=== PATIENT | female | born 2000 | race Caucasian/White ===

== ENCOUNTER 2021-06-02 22:43 | Emergency (ER) | payer OTHER ==
[2021-06-02] MEDS ORDERED: Sodium Chloride 0.9% 1000 ML 1,000 ML IV STA (23:14)
[2021-06-02 23:55] LABS: Absolute Neutrophil Ct (ANC) 4.01 (1.4-6.9); BASOPHIL % 0.2 % (0.0-0.4); Basophil (Absolute #) 0.02 (0-0.4); Eosinophil (Absolute #) 0.25 (0-0.5); Hematocrit 35.5 % (35-47); Hemoglobin 11.2 gm/dl (12.0-16.0); Lymphocytes % 36.5 % (24.0-44.0); Mean Cell Volume 73.5 fl (78-100); Mean Corpuscular Hemoglobin 23.2 pg (26-32); Mean Corpuscular Hgb Concent. 31.5 g/dl (32-36); Mean Platelet Volume 8.8 fl (7.5-11.0); Monocyte (Absolute #) 0.94 (0.0-1.3); Monocytes % 11.4 % (0.0-12.0); Neutrophil % 48.9 % (36.0-66.0); Platelet Count 511 K/mm3 (150-450); Red Blood Count 4.83 M/mm3 (4.1-5.4); Red Cell Distribution Width 15.7 % (11.5-14.0); White Blood Count 8.2 K/mm3 (4.0-10.5)
[2021-06-03 00:04] LABS: INR 1.11 (0.8-3.0); PROTIME 13.1 SECONDS (9.4-12.5)
[2021-06-03 00:15] LABS: ALKALINE PHOSPHATASE 84 U/L (38-126); AMYLASE 68 U/L (30-110); ANION GAP 15.8 MEQ/L (5-15); BLOOD UREA NITROGEN 9 mg/dL (7-17); CHLORIDE 105 mmol/L (98-107); Calcium 9.2 mg/dL (8.4-10.2); Carbon Dioxide 21 mmol/L (22-30); Creatinine 1 0.73 mg/dL (0.52-1.04); EST GLOMERULAR FILTRATION RATE > 60.0 ML/MIN; Glucose 95 mg/dL (74-106); LIPASE 168 U/L (23-300); Potassium 3.5 mmol/L (3.5-5.1); SGOT/AST 16 U/L (14-36); SGPT/ALT 10 U/L (0-35); SODIUM 139 mmol/L (137-145); Total Protein 7.7 g/dL (6.3-8.2)
[2021-06-03] MEDS ORDERED: solu-MEDROL 125 MG, Sterile H2O 10 ml 2 ML IV ONE ×2 (01:06)
[2021-06-03] MEDS ORDERED: FLAGYL 500 MG IVPB 500 MG/100 ML BAG IV STA (01:07)
[2021-06-03 01:21] LABS: Appearance CLEAR (CLEAR); Bilirubin NEGATIVE (NEGATIVE); Blood MODERATE Ery/ul (0-5); Glucose NEGATIVE (NEGATIVE); Ketones NEGATIVE (NEGATIVE); Leukocyte Esterase NEGATIVE (NEGATIVE); Nitrite NEGATIVE (NEGATIVE); Protein,Urine Dip NEGATIVE (Negative); Specific Gravity 1.004 (1.005-1.025); Urobilinogen NEGATIVE mg/dL (0-1); WBC 0-2 /HPF (0-5)
[2021-06-03 01:24] LABS: Bacteria NONE SEEN /HPF (NEGATIVE)
[2021-06-03] MEDS ORDERED: Flagyl 500 MG PO ONE (01:26)
[2021-06-03] MEDS ORDERED: solu-MEDROL 125 MG, Sterile H2O 10 ml 2 ML IM ONE ×2 (01:27)
[2021-06-03] MEDS ORDERED: solu-MEDROL ONE (01:31)
[2021-06-03] MEDS ORDERED: Sterile H2O 10 ml IJ ONE (01:31)
[2021-06-03] MEDS ORDERED: Flagyl 500 MG ONE (01:32)
[2021-06-03 01:59] LABS: 027 TOX PROD PRESUMPTIVE NEGATIVE (NEGATIVE); TOXIGENIC C. DIFF ORG NEGATIVE (NEGATIVE)
[2021-06-03 03:52] VITALS: O2SAT 96
[2021-06-03 03:59] VITALS: BP 101/64; PULSE 90
--- NOTE | 2021-06-03 03:59 | ERPHSYRPT ---
- History of Present Illness Time Seen by Provider: 06/02/21 23:10 Historian: patient Exam Limitations: no limitations Patient Subjective Stated Complaint: Patient states she began noticing an increase in the blood in her stool today. She states she always has a little bit of blood in her stool related to her Crohn's Disease but it has increased signifcantly today and she has noted some clots in her stool as well. States she has had 4 bowel movements today and all have been "loose like water." Triage Nursing Assessment: Patient ambulated back to ED. She is alert and oriented and able to answer questions appropriately. Patient unable to give a stool sample at this time but did have some pictures on her phone of some bowel movements that she had today that showed stool with bright red bleeding and clots in them. She denies any abdominal pain. She has active bowel sounds. Denies N/V. Inspected buttocks/rectum with no external hemrrhoids noted. Physician History: Patient is a 30-year-old white female who knows a history of Crohn's disease she has been having increasing diarrhea and small amounts of blood but then today had 4 stools 1 of which contained a significant increase in the amount of blood. She has recently been on antibiotics for a sinus infection and ear infection. She is maintained on Humira she is followed by Dr. Grady in [place] at [facility] Timing/Duration: week(s) (1) Activities at Onset: none Quality: cramping Abdominal Pain Onset Location: generalized abdomen Pain Radiation: no radiation Severity of Pain-Max: mild Severity of Pain-Current: mild Modifying Factors: Improves With: nothing, defecating. Worsens With: vomiting Associated Symptoms: denies symptoms Previous symptoms: same symptoms as today Allergies/Adverse Reactions: No Known Drug Allergies Allergy (Verified 06/02/21 22:56) Home Medications: Adalimumab [Humira] 40 mg SQ CLARIFY 06/02/21 [History] Loratadine 10 mg [Claritin 10 mg] 10 mg PO DAILY 06/02/21 [History] Hx Tetanus, Diphtheria Vaccination/Date Given: Yes Hx Influenza Vaccination/Date Given: Yes Hx Pneumococcal Vaccination/Date Given: No Immunizations Up to Date: Yes Travel Risk - International Travel Have you traveled outside of the country in past 3 weeks: No - Coronavirus Screening Are you exhibiting any of the following symptoms?: Yes Symptoms: Vomiting/Diarrhea Close contact with a COVID-19 positive Pt in past 14-21 Days: No - Vaccine Status Have you recieved a Covid-19 vaccination: Yes 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[employer] - Vaccination Dates Date of 2cond Vaccination (if applicable): 11/04/20 Comment: Received Booster vaccine on 05/29/21 - Review of Systems Constitutional: No Fever, No Chills Eyes: No Symptoms Ears, Nose, & Throat: No Symptoms Respiratory: No Cough, No Dyspnea Cardiac: No Chest Pain, No Edema, No Syncope Abdominal/Gastrointestinal: Abdominal Pain, Diarrhea, Hematochezia, No Nausea, No Vomiting Genitourinary Symptoms: No Dysuria Musculoskeletal: No Back Pain, No Neck Pain Skin: No Rash Neurological: No Dizziness, No Focal Weakness, No Sensory Changes Psychological: No Symptoms Endocrine: No Symptoms All Other Systems: Reviewed and Negative - Past Medical History Pertinent Past Medical History: Yes GI Medical History: Crohns Disease - Past Surgical History Past Surgical History: Yes Other Surgical History: COLONOSCOPY - ADENOIDECTMY - Social History Smoking Status: Never smoker Exposure to second hand smoke: No Drug Use: none Patient Lives Alone: No - Female History Hx Now: No - Nursing Vital Signs Nursing Vital Signs: Initial Vital Signs Temperature 97.7 F 06/02/21 22:59 Pulse Rate 103 H 06/02/21 22:59 Respiratory Rate 17 06/02/21 22:59 Blood Pressure 124/82 06/02/21 22:59 O2 Sat by Pulse Oximetry 96 06/02/21 22:59 Pain Scale Pain Intensity 0 - Physical Exam General Appearance: mild distress, alert Eye Exam: PERRL/EOMI, eyes nml inspection Ears, Nose, Throat Exam: normal ENT inspection, pharynx normal, moist mucous membranes Neck Exam: normal inspection, non-tender, supple, full range of motion Respiratory Exam: normal breath sounds, lungs clear, No respiratory distress Cardiovascular Exam: regular rate/rhythm, normal heart sounds Gastrointestinal/Abdomen Exam: soft, No tenderness, No mass Rectal Exam: normal exam Back Exam: normal inspection, normal range of motion, No CVA tenderness, No vertebral tenderness Extremity Exam: normal inspection, normal range of motion, pelvis stable Neurologic Exam: alert, oriented x 3, cooperative, normal mood/affect, nml cerebellar function, sensation nml, No motor deficits Skin Exam: normal color, warm, dry SpO2: 96 - Course Nursing assessment & vital signs reviewed: Yes - CT Exams Abdomen/Pelvis CT Interpretation: Tele-radiologist Report Ordered Tests: Active Orders 24 hr Category Date Time Status IV Insertion STAT Care 06/02/21 23:14 Active ABDOMEN AND PELVIS W/0 CONTRAS [CT] Stat Exams 06/03/21 00:47 Taken AMYLASE Stat Lab 06/02/21 23:52 Completed CBC W DIFF Stat Lab 06/02/21 23:52 Completed CMP Stat Lab 06/02/21 23:52 Completed LIPASE Stat Lab 06/02/21 23:52 Completed Lactic Acid Stat Lab 06/02/21 23:52 Completed PROTIME WITH INR Stat Lab 06/02/21 23:52 Completed UA W/RFX UR CULTURE Stat Lab 06/03/21 00:51 Completed Medication Summary Discontinued Medications Generic Name Dose Route Start Last Admin Trade Name Freq PRN Reason Stop Dose Admin Methylprednisolone Sodium 0 mg 06/03/21 01:06 Succinate 125 mg/ Sterile IV 06/03/21 01:07 Water 2 ml STAT ONE Methylprednisolone Sodium 0 mg 06/03/21 01:27 06/03/21 01:32 Succinate 125 mg/ Sterile IM 06/03/21 01:28 125 mg Water 2 ml STAT ONE Administration Sodium Chloride 1,000 mls @ 999 mls/hr 06/02/21 23:14 Sodium Chloride 0.9% 1000 Ml IV 06/03/21 00:14 .Q1H1M STA Metronidazole 500 mg in 100 mls @ 200 mls/hr 06/03/21 01:07 Flagyl 500 Mg Ivpb IV 06/03/21 01:36 STAT STA Methylprednisolone Sodium Succinate Confirm 06/03/21 01:31 Methylprednis Sod Succ 125 Mg/2 Ml Vial Administered 06/03/21 01:32 Dose 125 mg .ROUTE .STK-MED ONE Metronidazole 500 mg 06/03/21 01:26 06/03/21 01:32 Metronidazole 500 Mg Tablet PO 06/03/21 01:27 500 mg STAT ONE Administration Metronidazole Confirm 06/03/21 01:32 Metronidazole 500 Mg Tablet Administered 06/03/21 01:33 Dose 500 mg .ROUTE .STK-MED ONE Sterile Water Confirm 06/03/21 01:31 Water For Injection,Sterile 10 Ml Vial Administered 06/03/21 01:32 Dose 10 ml IJ .STK-MED ONE Lab/Rad Data: Laboratory Result Diagrams 06/02/21 23:52 06/02/21 23:52 Laboratory Results 06/03/21 06/03/21 06/02/21 Range/Units 01:09 00:51 23:52 WBC (4.0-10.5) K/mm3 RBC (4.1-5.4) M/mm3 Hgb (12.0-16.0) gm/dl Hct (35-47) % MCV (78-100) fl MCH (26-32) pg MCHC (32-36) g/dl RDW (11.5-14.0) % Plt Count (150-450) K/mm3 MPV (7.5-11.0) fl Gran % (36.0-66.0) % Eos # (Auto) (0-0.5) Absolute Lymphs (auto) (1.0-4.6) Absolute Monos (auto) (0.0-1.3) Lymphocytes % (24.0-44.0) % Monocytes % (0.0-12.0) % Eosinophils % (0.00-5.0) % Basophils % (0.0-0.4) % Absolute Granulocytes (1.4-6.9) Basophils # (0-0.4) PT 13.1 H (9.4-12.5) SECONDS INR 1.11 (0.8-3.0) Sodium (137-145) mmol/L Potassium (3.5-5.1) mmol/L Chloride (98-107) mmol/L Carbon Dioxide (22-30) mmol/L Anion Gap (5-15) MEQ/L BUN (7-17) mg/dL Creatinine (0.52-1.04) mg/dL Estimated GFR ML/MIN Glucose (74-106) mg/dL Lactic Acid (0.4-2.0) Calcium (8.4-10.2) mg/dL Total Bilirubin (0.2-1.3) mg/dL AST (14-36) U/L ALT (0-35) U/L Alkaline Phosphatase (38-126) U/L Serum Total Protein (6.3-8.2) g/dL Albumin (3.5-5.0) g/dL Amylase (30-110) U/L Lipase (23-300) U/L Urine Color STRAW (YELLOW) Urine Appearance CLEAR (CLEAR) Urine pH 6.0 (5-6) Ur Specific [place] 1.004 (1.005-1.025) Urine Protein NEGATIVE (Negative) Urine Ketones NEGATIVE (NEGATIVE) Urine Blood MODERATE (0-5) Sancho/ul Urine Nitrite NEGATIVE (NEGATIVE) Urine Bilirubin NEGATIVE (NEGATIVE) Urine Urobilinogen NEGATIVE (0-1) mg/dL Ur Leukocyte Esterase NEGATIVE (NEGATIVE) Urine WBC (Auto) 0-2 (0-5) /HPF Urine RBC (Auto) 3-5 (0-2) /HPF U Epithel Cells (Auto) NONE (FEW) /HPF Urine Bacteria (Auto) NONE SEEN (NEGATIVE) /HPF Urine Culture Reflexed NO (NO) Urine Glucose NEGATIVE (NEGATIVE) mg/dL Urine HCG, Qual (Negative) Stool Occult Blood (NEGATIVE) C. difficile Screen NEGATIVE (NEGATIVE) C.difficile [id number] PRESUMPTIVE NEGATIVE (NEGATIVE) 06/02/21 06/02/21 06/02/21 Range/Units 23:52 23:52 23:52 WBC 8.2 (4.0-10.5) K/mm3 RBC 4.83 (4.1-5.4) M/mm3 Hgb 11.2 L (12.0-16.0) gm/dl Hct 35.5 (35-47) % MCV 73.5 L (78-100) fl MCH 23.2 L (26-32) pg MCHC 31.5 L (32-36) g/dl RDW 15.7 H (11.5-14.0) % Plt Count 511 H (150-450) K/mm3 MPV 8.8 (7.5-11.0) fl Gran % 48.9 (36.0-66.0) % Eos # (Auto) 0.25 (0-0.5) Absolute Lymphs (auto) 3.00 (1.0-4.6) Absolute Monos (auto) 0.94 (0.0-1.3) Lymphocytes % 36.5 (24.0-44.0) % Monocytes % 11.4 (0.0-12.0) % Eosinophils % 3.0 (0.00-5.0) % Basophils % 0.2 (0.0-0.4) % Absolute Granulocytes 4.01 (1.4-6.9) Basophils # 0.02 (0-0.4) PT (9.4-12.5) SECONDS INR (0.8-3.0) Sodium 139 (137-145) mmol/L Potassium 3.5 (3.5-5.1) mmol/L Chloride 105 (98-107) mmol/L Carbon Dioxide 21 L (22-30) mmol/L Anion Gap 15.8 H (5-15) MEQ/L BUN 9 (7-17) mg/dL Creatinine 0.73 (0.52-1.04) mg/dL Estimated GFR > 60.0 ML/MIN Glucose 95 (74-106) mg/dL Lactic Acid 0.8 (0.4-2.0) Calcium 9.2 (8.4-10.2) mg/dL Total Bilirubin 0.30 (0.2-1.3) mg/dL AST 16 (14-36) U/L ALT 10 (0-35) U/L Alkaline Phosphatase 84 (38-126) U/L Serum Total Protein 7.7 (6.3-8.2) g/dL Albumin 4.0 (3.5-5.0) g/dL Amylase 68 (30-110) U/L Lipase 168 (23-300) U/L Urine Color (YELLOW) Urine Appearance (CLEAR) Urine pH (5-6) Ur Specific [place] (1.005-1.025) Urine Protein (Negative) Urine Ketones (NEGATIVE) Urine Blood (0-5) Sancho/ul Urine Nitrite (NEGATIVE) Urine Bilirubin (NEGATIVE) Urine Urobilinogen (0-1) mg/dL Ur Leukocyte Esterase (NEGATIVE) Urine WBC (Auto) (0-5) /HPF Urine RBC (Auto) (0-2) /HPF U Epithel Cells (Auto) (FEW) /HPF Urine Bacteria (Auto) (NEGATIVE) /HPF Urine Culture Reflexed (NO) Urine Glucose (NEGATIVE) mg/dL Urine HCG, Qual (Negative) Stool Occult Blood (NEGATIVE) C. difficile Screen (NEGATIVE) C.difficile 027-NAP1-B1 (NEGATIVE) 06/02/21 06/02/21 Range/Units 01:08 01:08 WBC (4.0-10.5) K/mm3 RBC (4.1-5.4) M/mm3 Hgb (12.0-16.0) gm/dl Hct (35-47) % MCV (78-100) fl MCH (26-32) pg MCHC (32-36) g/dl RDW (11.5-14.0) % Plt Count (150-450) K/mm3 MPV (7.5-11.0) fl Gran % (36.0-66.0) % Eos # (Auto) (0-0.5) Absolute Lymphs (auto) (1.0-4.6) Absolute Monos (auto) (0.0-1.3) Lymphocytes % (24.0-44.0) % Monocytes % (0.0-12.0) % Eosinophils % (0.00-5.0) % Basophils % (0.0-0.4) % Absolute Granulocytes (1.4-6.9) Basophils # (0-0.4) PT (9.4-12.5) SECONDS INR (0.8-3.0) Sodium (137-145) mmol/L Potassium (3.5-5.1) mmol/L Chloride (98-107) mmol/L Carbon Dioxide (22-30) mmol/L Anion Gap (5-15) MEQ/L BUN (7-17) mg/dL Creatinine (0.52-1.04) mg/dL Estimated GFR ML/MIN Glucose (74-106) mg/dL Lactic Acid (0.4-2.0) Calcium (8.4-10.2) mg/dL Total Bilirubin (0.2-1.3) mg/dL AST (14-36) U/L ALT (0-35) U/L Alkaline Phosphatase (38-126) U/L Serum Total Protein (6.3-8.2) g/dL Albumin (3.5-5.0) g/dL Amylase (30-110) U/L Lipase (23-300) U/L Urine Color (YELLOW) Urine Appearance (CLEAR) Urine pH (5-6) Ur Specific [place] (1.005-1.025) Urine Protein (Negative) Urine Ketones (NEGATIVE) Urine Blood (0-5) Sancho/ul Urine Nitrite (NEGATIVE) Urine Bilirubin (NEGATIVE) Urine Urobilinogen (0-1) mg/dL Ur Leukocyte Esterase (NEGATIVE) Urine WBC (Auto) (0-5) /HPF Urine RBC (Auto) (0-2) /HPF U Epithel Cells (Auto) (FEW) /HPF Urine Bacteria (Auto) (NEGATIVE) /HPF Urine Culture Reflexed (NO) Urine Glucose (NEGATIVE) mg/dL Urine HCG, Qual NEGATIVE (Negative) Stool Occult Blood POSITIVE A (NEGATIVE) C. difficile Screen (NEGATIVE) C.difficile 027-NAP1-B1 (NEGATIVE) - Progress Progress: improved - Departure Departure Disposition: Home Clinical Impression: Exacerbation of Crohn's disease Condition: Stable Critical Care Time: No Referrals: KAVITA MEJIA NP [Primary Care Provider] - Follow up/PCP as directed Instructions: Crohn's Disease (DC) Prescriptions: Prednisone 10 mg [Deltasone 10 mg] 20 mg PO TID 6 Days #20 tablet Metronidazole 500 mg [Flagyl 500 MG] 500 mg PO TID 10 Days #30 tablet
--- NOTE | 2021-06-03 07:57 | XRAY ---
Indication: Bloody stools. History of Crohn's disease. Multiple contiguous axial images obtained through the abdomen and pelvis without contrast. Comparison: January 03, 2015. Lung bases remain clear. Heart not enlarged. Noncontrasted stomach and bowel loops remain nonobstructed. Terminal ileum demonstrates mild circumferential wall thickening with minimal stranding commonly seen with Crohn's disease. Normal appendix. No free fluid/air. Remaining liver, gallbladder, pancreas, spleen, adrenal glands, kidneys, ureters, bladder, uterus, and aorta are unremarkable for noncontrast exam. Osseous structures intact. No ventral or inguinal hernias. Impression: 1. Terminal ileum bowel wall thickening with minimal stranding. Rule out exacerbation Crohn's disease. 2. Remaining CT abdomen/pelvis without contrast exam is negative. Comment: Preliminary interpretation made by C. No critical discrepancy.
== END 2021-06-03 04:05 | disposition home or self-care (01) ==
LOC: ED 22:43
DX: K50.00 Crohn's disease of small intestine without complications (principal); K92.1 Melena; Z79.899 Other long term (current) drug therapy
CPT/HCPCS: 36415; 74176; 80053; 81001; 82150; 82274; 83605; 83690; 84703; 85025; 85610; 87493; 96372; 99284; J2930; A9270-GY; G0328

== ENCOUNTER 2021-11-16 05:39 | Day surgery (SDC) | payer OTHER ==
--- NOTE | 2021-11-09 08:24 | HP ---
DATE OF SURGERY: 11/16/2021 HISTORY OF PRESENT ILLNESS: The patient is a 21-year-old female with history of Crohn's. She does see a GI doctor out of town for this, I believe in [place] or [place], Dr. Francie Lea. She was diagnosed about age 14. Her last colonoscopy was in 2019. She is on Humira for the Crohn's disease. She does report some diarrhea for the past few months. She denies any abdominal pain at this time. PAST MEDICAL HISTORY: Crohn's. PAST SURGICAL HISTORY: Tubes in the ears. [place] teeth. Colonoscopy and EGD x2. ALLERGIES: NKDA. MEDICATIONS: Humira, loratadine. FAMILY HISTORY: Cancer. Crohn's disease. Hypertension. SOCIAL HISTORY: None. REVIEW OF SYSTEMS: CONSTITUTIONAL: Denies fever or chills. CHEST: Denies shortness of breath. CVS: Denies chest pain. ABDOMEN: Denies abdominal pain, nausea, vomiting. Reports diarrhea. Denies constipation or rectal bleeding. PHYSICAL EXAMINATION: GENERAL: No acute distress. CHEST: Nonlabored. No shortness of breath. CVS: Regular rate and rhythm. ABDOMEN: Soft. IMPRESSION: History of Crohn's disease and diarrhea. PLAN: Colonoscopy with stool studies with Dr. Kameron Crawley. As dictated by Alyssa Norris NP.
[2021-11-16] MEDS ORDERED: Lactated Ringers 1,000 ML IV SCH (06:30)
[2021-11-16] MEDS ORDERED: Versed 2 MG/2 ML Injection ONE (08:09)
[2021-11-16] MEDS ORDERED: DIPRIVAN 200 MG/20 ML IV ONE ×2 (08:09→08:31)
[2021-11-16] MEDS ORDERED: GlucaGen 1 MG ONE (08:19)
[2021-11-16 09:05] VITALS: BP 108/75; PULSE 98; O2SAT 96
--- NOTE | 2021-11-16 10:06 | OP ---
SURGERY DATE/TIME: 11/16/2021 0811 PREOPERATIVE DIAGNOSIS: Crohn's disease. POSTOPERATIVE DIAGNOSIS: Acute ileocecal Crohn's. PROCEDURE: Colonoscopy complete to cecum including 4 inches of terminal ileum. FINDINGS: Acute active Crohn's disease particularly in the ileocecal and a little bit throughout the colon starting at the rectum. SURGEON: Kameron Crawley M.D. ANESTHESIA: MAC. COMPLICATIONS: None. CONDITION: Stable. SPECIMENS: Eight samples in five jars. INDICATION: The patient has known Crohn's disease. She presents for examination. She has been having some increased symptoms. DESCRIPTION OF PROCEDURE: She is taken to endoscopy. Left lateral decubitus position. Anal digital examination satisfactory. Fairly deep anus. No induration. Anus is satisfactory. Rectum just slight mucous. Joinery Setter Out rectal biopsy taken. Sigmoid slight mucous and one ulcer, a linear ulcer very superficial biopsy taken. Descending, splenic, transverse, hepatic flexure clearly some more significant mucous and irritation. Joinery Setter Out biopsy submitted. Coming down the right colon, the base of the cecum with just slight distortion and slight firmness. Appendix orifice seen. Ileocecal orifice cannulated about 4 inches. The ileum was clearly involved. The ileocecal valve was narrowed down to almost the size of the scope which was a fairly small scope. Two biopsies of the ileum. Two biopsies of the cecum. Grossly the ileocecal area both the cecal side and the ileal side were grossly involved. Circumferential withdrawal, no additional lesions. Fluid was sent for clostridium difficile, ova and parasite, and stool pathogens. IMPRESSION: Acute active ileocolonic Crohn's predominantly at the ileocolonic area although there seems to be some very light colitis distally in the colon both at the hepatic flexure and the sigmoid.
[2021-11-17 10:01] LABS: 027 TOX PROD PRESUMPTIVE NEGATIVE (NEGATIVE); TOXIGENIC C. DIFF ORG NEGATIVE (NEGATIVE)
== END 2021-11-16 09:15 | disposition home or self-care (01) ==
LOC: SDC 05:39
PROVIDERS: ATTEND Surgery
DX: K50.90 Crohn's disease, unspecified, without complications (principal); K50.00 Crohn's disease of small intestine without complications
CPT/HCPCS: 36415; 81025; 87045; 87046; 87328; 87329; 87493; J1610; J2250; J2704

== ENCOUNTER 2022-03-12 08:35 | Emergency (ER) | payer OTHER ==
[2022-03-12] MEDS ORDERED: XYLOCAINE 1% HCL 20 ML MDV IJ ONE (08:36)
[2022-03-12 08:53] VITALS: BP 130/70; PULSE 95; O2SAT 95
--- NOTE | 2022-03-12 09:01 | ERPHSYRPT ---
- History of Present Illness Time Seen by Provider: 03/12/22 08:45 Source: patient, family Exam Limitations: no limitations Patient Subjective Stated Complaint: Pt has a cyst on her right breast in the [place] and has been on antibiotics for 2 weeks and is on her 2nd antibiotic, the cyst is getting more painful and getting larger Triage Nursing Assessment: Pt brought to the ER by her mother, vitals wnl, rates pain as 8/10, right breast hard and warm to touch, states that she had a fever last night, had an ultrasound here the other day on her right breast which showed the mass Physician History: This is a 21-year-old white female who has been undergoing treatment for right breast cellulitis. An ultrasound was performed recently which shows a cystic mass. It has been treated with Keflex, a full round, and 2 to 3 days of Bactrim BS without resolution. Patient was told by her nurse practitioner that she would be referred to a general surgeon if the antibiotics were not effective. The patient states that the right breast inflammation is still present despite oral antibiotic therapy. Quality: burning, painful Severity: mild Location: other (Right breast) Possible Causes: no cause identified Associated Symptoms: swelling/mass/lumps (Right breast) Allergies/Adverse Reactions: No Known Drug Allergies Allergy (Verified 03/12/22 08:53) Home Medications: Adalimumab [Humira] 80 mg SQ CLARIFY 06/02/21 [History] Loratadine 10 mg [Claritin 10 mg] 10 mg PO DAILY PRN PRN 06/02/21 [History] Smz/Tmp Ds Tablet [Bactrim Ds Tablet] 1 tab PO Q12H 03/12/22 [History] Hx Tetanus, Diphtheria Vaccination/Date Given: Yes Hx Influenza Vaccination/Date Given: Yes Hx Pneumococcal Vaccination/Date Given: No Travel Risk - International Travel Have you traveled outside of the country in past 3 weeks: No - Coronavirus Screening Are you exhibiting any of the following symptoms?: No Close contact with a COVID-19 positive Pt in past 14-21 Days: No - Vaccine Status Have you recieved a Covid-19 vaccination: Yes 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[employer] - Vaccination Dates Date of 2cond Vaccination (if applicable): 11/04/20 Comment: Received Booster vaccine on 05/29/21 - Review of Systems Constitutional: No Symptoms Eyes: No Symptoms Ears, Nose, & Throat: No Symptoms Respiratory: No Symptoms Cardiac: No Symptoms Abdominal/Gastrointestinal: No Symptoms Genitourinary Symptoms: No Symptoms Musculoskeletal: No Symptoms Skin: Cellulitis (Right breast), Induration (Right breast) Neurological: No Symptoms Psychological: No Symptoms Endocrine: No Symptoms Hematologic/Lymphatic: No Symptoms Immunological/Allergic: No Symptoms All Other Systems: Reviewed and Negative - Past Medical History Pertinent Past Medical History: Yes Neurological History: No Pertinent History ENT History: No Pertinent History Cardiac History: No Pertinent History Respiratory History: Other Endocrine Medical History: No Pertinent History Musculoskeletal History: No Pertinent History GI Medical History: Crohns Disease History: No Pertinent History Psycho-Social History: Anxiety Female Reproductive Disorders: No Pertinent History Other Medical History: COVID-19, childhood asthma - Past Surgical History Past Surgical History: Yes Neuro Surgical History: No Pertinent History Cardiac: No Pertinent History Respiratory: No Pertinent History Gastrointestinal: Other Genitourinary: No Pertinent History Musculoskeletal: No Pertinent History Female Surgical History: No Pertinent History Other Surgical History: COLONOSCOPY - ADENOIDECTMY - Social History Smoking Status: Never smoker Exposure to second hand smoke: Yes Drug Use: none Patient Lives Alone: No - Female History Hx Now: No (implant) - Nursing Vital Signs Nursing Vital Signs: Initial Vital Signs Temperature 98.8 F 03/12/22 08:40 Pulse Rate 95 H 03/12/22 08:40 Blood Pressure 130/70 03/12/22 08:40 O2 Sat by Pulse Oximetry 95 03/12/22 08:40 Pain Scale Pain Intensity 8 - Physical Exam General Appearance: no apparent distress, alert, anxiety Eye Exam: PERRL/EOMI, eyes nml inspection Ears, Nose, Throat Exam: normal ENT inspection, moist mucous membranes Neck Exam: normal inspection, non-tender, supple, full range of motion Respiratory Exam: normal breath sounds, lungs clear, airway intact, No chest tenderness, No respiratory distress Cardiovascular Exam: regular rate/rhythm, normal heart sounds, normal peripheral pulses Gastrointestinal/Abdomen Exam: soft, normal bowel sounds, No tenderness Pelvic Exam: not done Rectal Exam: not done Back Exam: normal inspection, normal range of motion, No CVA tenderness, No vertebral tenderness Extremity Exam: normal inspection, normal range of motion, pelvis stable Neurologic Exam: alert, oriented x 3, cooperative, 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 Is tender to palpation. No palpable abscess present.) Lymphatic Exam: No adenopathy SpO2 Interpretation: normal SpO2: 95 O2 Delivery: Room Air - Progress Progress: unchanged Progress Note: 03/12/22 09:00 Medical decision making: There is no palpable or visible abscess present. There is indurated skin and cellulitis of the skin overlying the right breast. I do not think it is appropriate for me to blindly make an incision and area of the right breast. There is no abscess to drain either by bleed or by needle. I think the patient would be best served to be evaluated by general surgeon and they will make that determination. Counseled pt/family regarding: diagnosis, need for follow-up, rad results - Departure Departure Disposition: Home Clinical Impression: Cellulitis of right breast Condition: Stable Critical Care Time: No Referrals: KAVITA MEJIA NP [Primary Care Provider] - Follow up/PCP as directed Additional Instructions: Continue your Bactrim DS as prescribed. Follow-up with the general surgeon appointment that we obtained for you. Use Tylenol and ibuprofen for pain and inflammation control.
[2022-03-12] MEDS ORDERED: Rocephin 1000 MG INJ IM ONE (09:17)
[2022-03-12] MEDS ORDERED: Rocephin 1000 MG INJ ONE (09:18)
== END 2022-03-12 09:30 | disposition home or self-care (01) ==
LOC: ED 08:35
DX: N61.0 Mastitis without abscess (principal); Z79.899 Other long term (current) drug therapy; Z86.16 Personal history of COVID-19
CPT/HCPCS: 96372; 99282; J0696

== ENCOUNTER 2022-04-20 15:17 | Observation (INO) | payer OTHER ==
[2022-04-20] MEDS ORDERED: TYLENOL 325 MG PO STA (15:43)
[2022-04-20] MEDS ORDERED: Sodium Chloride 0.9% 1000 ML 1,000 ML IV STA (15:43)
[2022-04-20] MEDS ORDERED: Sodium Chloride 0.9% 1000 ML 1,000 ML ONE ×2 (15:54→17:24)
[2022-04-20] MEDS ORDERED: TYLENOL 325 MG ONE (15:54)
[2022-04-20 15:57] LABS: Basophil (Absolute #) 0.03 x10^3/uL (0-0.4); Eosinophil % 1.5 % (0.00-5.0); Eosinophil (Absolute #) 0.14 x10^3/uL (0-0.5); Hematocrit 30.6 % (35-47); Hemoglobin 9.5 g/dL (12.0-16.0); Lymphocyte (Absolute #) 2.13 x10^3/uL (1.0-4.6); Lymphocytes % 22.5 % (24.0-44.0); Mean Cell Volume 71.2 fL (78-100); Mean Corpuscular Hemoglobin 22.1 pg (26-32); Mean Platelet Volume 8.8 fL (7.5-11.0); Monocyte (Absolute #) 1.09 x10^3/uL (0.0-1.3); Monocytes % 11.5 % (0.0-12.0); Neutrophil % 63.4 % (36.0-66.0); Platelet Count 626 x10^3/uL (150-450); Red Cell Distribution Width 14.5 % (11.5-14.0); White Blood Count 9.5 x10^3/uL (4.0-10.5)
[2022-04-20 16:06] LABS: Appearance CLEAR (CLEAR); Bilirubin NEGATIVE (NEGATIVE); Dipstick done @ ? MAIN LAB; Glucose NEGATIVE (NEGATIVE); Ketones NEGATIVE (NEGATIVE); Nitrite NEGATIVE (NEGATIVE); Protein,Urine Dip 30 (Negative); RBC LARGE Ery/ul (0-5); Specific Gravity 1.015 (1.005-1.025); Urobilinogen 0.2 mg/dL (0-1)
[2022-04-20 16:07] LABS: Bacteria FEW /HPF (NEGATIVE); Mucus SLIGHT /HPF (NEGATIVE); Urine Cultured Indicated? YES
[2022-04-20 16:12] LABS: ALBUMIN 3.9 g/dL (3.5-5.0); ALKALINE PHOSPHATASE 90 U/L (38-126); ANION GAP 11.9 MEQ/L (5-15); BLOOD UREA NITROGEN 4 mg/dL (7-17); CHLORIDE 98 mmol/L (98-107); Calcium 8.6 mg/dL (8.4-10.2); Carbon Dioxide 26 mmol/L (22-30); EST GLOMERULAR FILTRATION RATE > 60.0 ML/MIN; Glucose 101 mg/dL (74-106); LIPASE 103 U/L (23-300); SGOT/AST 37 U/L (14-36); SGPT/ALT 15 U/L (0-35); SODIUM 133 mmol/L (137-145); Total Protein 8.3 g/dL (6.3-8.2)
[2022-04-20 16:15] LABS: Potassium 2.7 mmol/L (3.5-5.1)
[2022-04-20] MEDS ORDERED: Klor Con PO ONE ×2 (16:29→16:31)
[2022-04-20] MEDS ORDERED: POTASSIUM CHLORIDE 20 mEq IN WATER 100ML 100 ML IV ONE ×2 (16:31→18:06)
[2022-04-20 16:34] LABS: INFLUENZA A NEGATIVE (NEGATIVE); INFLUENZA B NEGATIVE (NEGATIVE); RESPIRATORY SYNCTIAL VIRUS NEGATIVE (Negative); SARS-CoV-2 Xpert Express NEGATIVE (NEGATIVE)
[2022-04-20] MEDS: POTASSIUM CHLORIDE 20 mEq IN WATER 100ML 20 MEQ/100 ML BAG IV SCH ×2 (16:34→18:23)
--- NOTE | 2022-04-20 16:43 | XRAY ---
Indication: Abdominal pain. History Crohn's disease. "Crohn's flareup." Multiple contiguous axial images obtained through the abdomen and pelvis without contrast. Comparison: June 03, 2021 Lung bases remain clear. Heart not enlarged. Noncontrasted stomach and bowel loops again nonobstructed. Normal appendix. Terminal ileum again demonstrates abnormal circumferential wall thickening with stranding favoring exacerbation Crohn's disease. Descending and sigmoid colon demonstrates mild wall thickening with minimal stranding also presume related Crohn's disease. Tiny pelvic free fluid. No walled off fluid collection or free air. Remaining liver, gallbladder, pancreas, spleen, adrenal glands, kidneys, ureters, bladder, uterus, and aorta are unremarkable for noncontrast exam. Osseous structures intact. Impression: Again abnormal circumferential wall thickening terminal ileum and lesser degree descending/sigmoid colon with stranding favoring exacerbation Crohn's disease. Tiny reactive pelvic free fluid.
[2022-04-20] MEDS ORDERED: solu-MEDROL 125 MG, Sterile H2O 10 ml 2 ML IV ONE ×2 (17:02)
--- NOTE | 2022-04-20 17:02 | ERPHSYRPT ---
- History of Present Illness Time Seen by Provider: 04/20/22 15:26 Historian: patient Exam Limitations: no limitations Patient Subjective Stated Complaint: Abdominal pain/fever Triage Nursing Assessment: Patient ambulated back to ED and transferred self to bed. Patient A+O X3. Patient's skin pink, warm and dry. Patient complains of fever and abdominal discomfort. Patient states she has a hx of crohn's disease and feels like she is having a flare up. Patient complains of watery, mucus diarrhea, fever blisters to mouth and fever. Physician History: 21 years old female with history of Crohn's disease with chronic diarrhea presented in the ER with worsening of diarrhea along with fatigue tiredness and low-grade temperature T-max of 100 with chills. Patient reports she has minimal abdominal discomfort all over which is not any worse than usual. She feels weak all over with lack of energy to do her routine activities. Denies any chest pain palpitations or shortness of breath. No cough or URI symptoms. Denies any sick contact. Patient thinks she is having her Crohn's flareup as she had similar symptoms in the past. Timing/Duration: yesterday, gradual onset, worse Activities at Onset: rest Quality: dullness Abdominal Pain Onset Location: generalized abdomen Pain Radiation: no radiation Severity of Pain-Max: mild Severity of Pain-Current: mild Modifying Factors: Worsens With: defecating Associated Symptoms: diarrhea, fever/chills, fatigue, nausea Previous symptoms: same symptoms as today Allergies/Adverse Reactions: No Known Drug Allergies Allergy (Verified 04/20/22 15:26) Hx Tetanus, Diphtheria Vaccination/Date Given: Yes Hx Influenza Vaccination/Date Given: Yes Hx Pneumococcal Vaccination/Date Given: No Immunizations Up to Date: Yes Travel Risk - International Travel Have you traveled outside of the country in past 3 weeks: No - Coronavirus Screening Are you exhibiting any of the following symptoms?: No Close contact with a COVID-19 positive Pt in past 14-21 Days: No - Vaccine Status Have you recieved a Covid-19 vaccination: Yes Pleating Supervisor: Yattos - Vaccination Dates Date of 2cond Vaccination (if applicable): 11/04/20 Comment: Received Booster vaccine on 05/29/21 - Review of Systems Constitutional: Fever, Chills, Fatigue, Weakness Eyes: No Symptoms Ears, Nose, & Throat: No Symptoms Respiratory: No Symptoms Cardiac: No Symptoms Abdominal/Gastrointestinal: Abdominal Pain, Diarrhea Genitourinary Symptoms: No Symptoms Musculoskeletal: No Symptoms Skin: No Symptoms Neurological: No Symptoms Psychological: No Symptoms Endocrine: No Symptoms Hematologic/Lymphatic: No Symptoms Immunological/Allergic: No Symptoms - Past Medical History Pertinent Past Medical History: Yes Neurological History: No Pertinent History ENT History: No Pertinent History Cardiac History: No Pertinent History Respiratory History: Other Endocrine Medical History: No Pertinent History Musculoskeletal History: No Pertinent History GI Medical History: Crohns Disease History: No Pertinent History Psycho-Social History: Anxiety Female Reproductive Disorders: No Pertinent History Other Medical History: COVID-19, childhood asthma - Past Surgical History Past Surgical History: Yes Neuro Surgical History: No Pertinent History Cardiac: No Pertinent History Respiratory: No Pertinent History Gastrointestinal: Other Genitourinary: No Pertinent History Musculoskeletal: No Pertinent History Female Surgical History: No Pertinent History Other Surgical History: COLONOSCOPY - ADENOIDECTMY - Social History Smoking Status: Never smoker Exposure to second hand smoke: Yes Drug Use: none Patient Lives Alone: No - Female History Hx Last Menstrual Period: inplannon Hx Now: No - Nursing Vital Signs Nursing Vital Signs: Initial Vital Signs Temperature 97.2 F 04/20/22 15:27 Pulse Rate 109 H 04/20/22 15:27 Respiratory Rate 18 04/20/22 15:27 Blood Pressure 137/93 04/20/22 15:27 O2 Sat by Pulse Oximetry 97 04/20/22 15:27 Pain Scale Pain Intensity 0 - Physical Exam General Appearance: no apparent distress, alert Eye Exam: PERRL/EOMI Ears, Nose, Throat Exam: normal ENT inspection Neck Exam: normal inspection, non-tender, supple, full range of motion Respiratory Exam: normal breath sounds, lungs clear Cardiovascular Exam: regular rate/rhythm, normal heart sounds Gastrointestinal/Abdomen Exam: soft, normal bowel sounds, tenderness (Mild tenderness follow-up), No guarding Back Exam: normal inspection, normal range of motion Extremity Exam: normal inspection, normal range of motion Neurologic Exam: alert, oriented x 3, cooperative, 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 Skin Exam: normal color SpO2 Interpretation: normal SpO2: 99 O2 Delivery: Room Air Ordered Tests: Medication Summary Generic Name Dose Route Start Last Admin Trade Name Freq PRN Reason Stop Dose Admin Acetaminophen 650 mg 04/20/22 18:00 Acetaminophen 325 Mg Tablet PO 05/20/22 17:59 Q4H PRN PRN PAIN AND/OR FEVER Potassium Chloride/Sodium Chloride 1,000 mls @ 100 mls/hr 04/20/22 18:00 04/22/22 02:31 Sodium Chloride 0.9% W/ 20 Meq Kcl/Liter IV 05/20/22 17:59 100 mls/hr .Q10H SIERRA Administration Levofloxacin/Dextrose 500 mg in 100 mls @ 100 mls/hr 04/21/22 10:00 04/22/22 09:12 Levofloxacin 500mg/100ml D5w IV 05/21/22 09:59 100 mls/hr Q24H10 SIERRA Administration Metronidazole 500 mg in 100 mls @ 200 mls/hr 04/20/22 18:00 04/22/22 12:49 Flagyl 500 Mg Ivpb IV 05/20/22 17:59 200 mls/hr Q6HT SIERRA Administration Ondansetron HCl 4 mg 04/20/22 21:50 Ondansetron Hcl 4 Mg/2 Ml Vial IV 05/20/22 21:49 Q6H PRN PRN NAUSEA/VOMITING Pantoprazole Sodium 40 mg 04/21/22 10:00 04/22/22 09:12 Pantoprazole 40 Mg Vial IV 05/21/22 09:59 40 mg Q24H10 SIERRA Administration Discontinued Medications Generic Name Dose Route Start Last Admin Trade Name Freq PRN Reason Stop Dose Admin Acetaminophen 975 mg 04/20/22 15:43 04/20/22 15:55 Acetaminophen 325 Mg Tablet PO 04/20/22 15:44 975 mg STAT STA Administration Acetaminophen Confirm 04/20/22 15:54 Acetaminophen 325 Mg Tablet Administered 04/20/22 15:55 Dose 975 mg .ROUTE .STK-MED ONE Albuterol/Ipratropium 3 ml 04/20/22 18:00 Ipratropium/Albuterol Sulfate 3 Ml Ampul.Neb IH 05/20/22 17:59 Q4HPRN PRN SHORTNESS OF BREATH/WHEEZING Methylprednisolone Sodium 0 mg 04/20/22 17:02 04/20/22 17:26 Succinate 125 mg/ Sterile IV 04/20/22 17:03 125 mg Water 2 ml STAT ONE Administration Sodium Chloride 1,000 mls @ 999 mls/hr 04/20/22 15:43 04/20/22 17:07 Sodium Chloride 0.9% 1000 Ml IV 04/20/22 16:43 Infused .Q1H1M STA Infusion Sodium Chloride Confirm 04/20/22 15:54 Sodium Chloride 0.9% 1000 Ml Administered 04/20/22 15:55 Dose 1,000 mls @ ud .ROUTE .STK-MED ONE Potassium Chloride 20 meq in 100 mls @ 50 mls/hr 04/20/22 16:30 04/20/22 18:23 Potassium Chloride 20 Meq In Water 100ml IV 04/20/22 20:29 50 mls/hr Q2H SIERRA Administration Levofloxacin/Dextrose 750 mg in 150 mls @ 100 mls/hr 04/20/22 17:21 04/20/22 19:02 Levofloxacin 750mg/150ml D5w IV 04/20/22 18:50 Not Given STAT STA Metronidazole 500 mg in 100 mls @ 200 mls/hr 04/20/22 17:21 04/20/22 17:27 Flagyl 500 Mg Ivpb IV 04/20/22 17:50 200 mls/hr STAT STA 200 mls/hr Administration Sodium Chloride 1,000 mls @ 100 mls/hr 04/20/22 17:30 04/20/22 17:26 Sodium Chloride 0.9% 1000 Ml IV 05/20/22 17:29 100 mls/hr .Q10H SIERRA Administration Metronidazole Confirm 04/20/22 17:24 Flagyl 500 Mg Ivpb Administered 04/20/22 17:25 Dose 500 mg in 100 mls @ ud IV .STK-MED ONE Magnesium Sulfate/Dextrose 100 mls @ 200 mls/hr 04/20/22 17:29 04/20/22 20:15 Magnesium 1 Gm / 100 Ml D5w IV 04/20/22 17:58 200 mls/hr STAT ONE Administration Potassium Chloride Confirm 04/20/22 16:31 Potassium Chloride 20 Meq In Water 100ml Administered 04/20/22 16:32 Dose 100 mls @ ud IV .STK-MED ONE Sodium Chloride Confirm 04/20/22 17:24 Sodium Chloride 0.9% 1000 Ml Administered 04/20/22 17:25 Dose 1,000 mls @ ud .ROUTE .STK-MED ONE Levofloxacin/Dextrose Confirm 04/20/22 18:04 Levofloxacin 500mg/100ml D5w Administered 04/20/22 18:05 Dose 500 mg in 100 mls @ ud IV .STK-MED ONE Potassium Chloride Confirm 04/20/22 18:06 Potassium Chloride 20 Meq In Water 100ml Administered 04/20/22 18:07 Dose 100 mls @ ud IV .STK-MED ONE Potassium Chloride/Sodium Chloride Confirm 04/20/22 20:05 Sodium Chloride 0.45% W/ 20 Meq Kcl Administered 04/20/22 20:06 Dose 1,000 mls @ ud IV .STK-MED ONE Magnesium Sulfate/Dextrose Confirm 04/20/22 20:05 Magnesium 1 Gm / 100 Ml D5w Administered 04/20/22 20:06 Dose 100 mls @ ud IV .STK-MED ONE Methylprednisolone Sodium Succinate Confirm 04/20/22 17:24 Methylprednis Sod Succ 125 Mg/2 Ml Vial Administered 04/20/22 17:25 Dose 125 mg .ROUTE .STK-MED ONE Potassium Chloride 40 meq 04/20/22 16:29 04/20/22 16:33 Potassium Chloride Tab 10 Meq Tab PO 04/20/22 16:30 40 meq STAT ONE Administration Potassium Chloride Confirm 04/20/22 16:31 Potassium Chloride Tab 10 Meq Tab Administered 04/20/22 16:32 Dose 40 meq PO .STK-MED ONE Sterile Water Confirm 04/20/22 17:23 Water For Injection,Sterile 10 Ml Vial Administered 04/20/22 17:24 Dose 10 ml IJ .STK-MED ONE Lab/Rad Data: Laboratory Result Diagrams 04/20/22 15:55 04/20/22 15:55 Laboratory Results 04/20/22 04/20/22 04/20/22 Range/Units 15:55 15:55 15:55 WBC (4.0-10.5) x10^3/uL RBC (4.1-5.4) x10^6/uL Hgb (12.0-16.0) g/dL Hct (35-47) % MCV (78-100) fL MCH (26-32) pg MCHC (32-36) g/dL RDW (11.5-14.0) % Plt Count (150-450) x10^3/uL MPV (7.5-11.0) fL Gran % (36.0-66.0) % Immature Gran % (Auto) (0.00-0.4) % Nucleat RBC Rel Count (0.00-0.1) % Eos # (Auto) (0-0.5) x10^3/uL Immature Gran # (Auto) (0.00-0.03) x10^3u/L Absolute Lymphs (auto) (1.0-4.6) x10^3/uL Absolute Monos (auto) (0.0-1.3) x10^3/uL Absolute Nucleated RBC (0.00-0.01) x10^3u/L Lymphocytes % (24.0-44.0) % Monocytes % (0.0-12.0) % Eosinophils % (0.00-5.0) % Basophils % (0.0-0.4) % Absolute Granulocytes (1.4-6.9) x10^3/uL Basophils # (0-0.4) x10^3/uL Sodium (137-145) mmol/L Potassium (3.5-5.1) mmol/L Chloride (98-107) mmol/L Carbon Dioxide (22-30) mmol/L Anion Gap (5-15) MEQ/L BUN (7-17) mg/dL Creatinine (0.52-1.04) mg/dL Estimated GFR ML/MIN Glucose (74-106) mg/dL Calcium (8.4-10.2) mg/dL Magnesium 1.8 (1.6-2.3) mg/dL Total Bilirubin (0.2-1.3) mg/dL AST (14-36) U/L ALT (0-35) U/L Alkaline Phosphatase (38-126) U/L Serum Total Protein (6.3-8.2) g/dL Albumin (3.5-5.0) g/dL Lipase (23-300) U/L Procalcitonin 0.114 H (0.030-0.080) ng/mL Urinalys Dipstick Clnc Urine Color (YELLOW) Urine Appearance (CLEAR) Urine pH (5-6) Ur Specific Pear[place] (1.005-1.025) POC Urine Protein Conf (Negative) Urine Ketones (NEGATIVE) Urine Nitrite (NEGATIVE) Urine Bilirubin (NEGATIVE) Urine Urobilinogen (0-1) mg/dL Urine Leukocytes (NEGATIVE) Urine WBC (Auto) (0-5) /HPF Urine RBC (Auto) (0-2) /HPF U Epithel Cells (Auto) (FEW) /HPF Urine Bacteria (Auto) (NEGATIVE) /HPF Urine RBC (0-5) Sancho/ul Urine Mucus (Auto) (NEGATIVE) /HPF Ur Culture Indicated? Urine Glucose (NEGATIVE) mg/dL Urine HCG, Qual (Negative) Influenza Type A Ag NEGATIVE (NEGATIVE) Influenza Type B Ag NEGATIVE (NEGATIVE) RSV (PCR) NEGATIVE (Negative) SARS-CoV-2 (PCR) NEGATIVE (NEGATIVE) 04/20/22 04/20/22 04/20/22 Range/Units 15:55 15:55 15:53 WBC 9.5 (4.0-10.5) x10^3/uL RBC 4.30 (4.1-5.4) x10^6/uL Hgb 9.5 L (12.0-16.0) g/dL Hct 30.6 L (35-47) % MCV 71.2 L (78-100) fL MCH 22.1 L (26-32) pg MCHC 31.0 L (32-36) g/dL RDW 14.5 H (11.5-14.0) % Plt Count 626 H (150-450) x10^3/uL MPV 8.8 (7.5-11.0) fL Gran % 63.4 (36.0-66.0) % Immature Gran % (Auto) 0.8 H (0.00-0.4) % Nucleat RBC Rel Count 0.0 (0.00-0.1) % Eos # (Auto) 0.14 (0-0.5) x10^3/uL Immature Gran # (Auto) 0.08 H (0.00-0.03) x10^3u/L Absolute Lymphs (auto) 2.13 (1.0-4.6) x10^3/uL Absolute Monos (auto) 1.09 (0.0-1.3) x10^3/uL Absolute Nucleated RBC 0.00 (0.00-0.01) x10^3u/L Lymphocytes % 22.5 L (24.0-44.0) % Monocytes % 11.5 (0.0-12.0) % Eosinophils % 1.5 (0.00-5.0) % Basophils % 0.3 (0.0-0.4) % Absolute Granulocytes 6.00 (1.4-6.9) x10^3/uL Basophils # 0.03 (0-0.4) x10^3/uL Sodium 133 L (137-145) mmol/L Potassium 2.7 L* (3.5-5.1) mmol/L Chloride 98 (98-107) mmol/L Carbon Dioxide 26 (22-30) mmol/L Anion Gap 11.9 (5-15) MEQ/L BUN 4 L (7-17) mg/dL Creatinine 0.90 (0.52-1.04) mg/dL Estimated GFR > 60.0 ML/MIN Glucose 101 (74-106) mg/dL Calcium 8.6 (8.4-10.2) mg/dL Magnesium (1.6-2.3) mg/dL Total Bilirubin 0.60 (0.2-1.3) mg/dL AST 37 H (14-36) U/L ALT 15 (0-35) U/L Alkaline Phosphatase 90 (38-126) U/L Serum Total Protein 8.3 H (6.3-8.2) g/dL Albumin 3.9 (3.5-5.0) g/dL Lipase 103 (23-300) U/L Procalcitonin (0.030-0.080) ng/mL Urinalys Dipstick Clnc MAIN LAB Urine Color YELLOW (YELLOW) Urine Appearance CLEAR (CLEAR) Urine pH 6.0 (5-6) Ur Specific Pear[place] 1.015 (1.005-1.025) POC Urine Protein Conf 30 A (Negative) Urine Ketones NEGATIVE (NEGATIVE) Urine Nitrite NEGATIVE (NEGATIVE) Urine Bilirubin NEGATIVE (NEGATIVE) Urine Urobilinogen 0.2 (0-1) mg/dL Urine Leukocytes NEGATIVE (NEGATIVE) Urine WBC (Auto) 6-10 A (0-5) /HPF Urine RBC (Auto) 11-15 A (0-2) /HPF U Epithel Cells (Auto) NONE (FEW) /HPF Urine Bacteria (Auto) FEW A (NEGATIVE) /HPF Urine RBC LARGE A (0-5) Sancho/ul Urine Mucus (Auto) SLIGHT A (NEGATIVE) /HPF Ur Culture Indicated? YES Urine Glucose NEGATIVE (NEGATIVE) mg/dL Urine HCG, Qual (Negative) Influenza Type A Ag (NEGATIVE) Influenza Type B Ag (NEGATIVE) RSV (PCR) (Negative) SARS-CoV-2 (PCR) (NEGATIVE) 04/20/22 Range/Units 15:43 WBC (4.0-10.5) x10^3/uL RBC (4.1-5.4) x10^6/uL Hgb (12.0-16.0) g/dL Hct (35-47) % MCV (78-100) fL MCH (26-32) pg MCHC (32-36) g/dL RDW (11.5-14.0) % Plt Count (150-450) x10^3/uL MPV (7.5-11.0) fL Gran % (36.0-66.0) % Immature Gran % (Auto) (0.00-0.4) % Nucleat RBC Rel Count (0.00-0.1) % Eos # (Auto) (0-0.5) x10^3/uL Immature Gran # (Auto) (0.00-0.03) x10^3u/L Absolute Lymphs (auto) (1.0-4.6) x10^3/uL Absolute Monos (auto) (0.0-1.3) x10^3/uL Absolute Nucleated RBC (0.00-0.01) x10^3u/L Lymphocytes % (24.0-44.0) % Monocytes % (0.0-12.0) % Eosinophils % (0.00-5.0) % Basophils % (0.0-0.4) % Absolute Granulocytes (1.4-6.9) x10^3/uL Basophils # (0-0.4) x10^3/uL Sodium (137-145) mmol/L Potassium (3.5-5.1) mmol/L Chloride (98-107) mmol/L Carbon Dioxide (22-30) mmol/L Anion Gap (5-15) MEQ/L BUN (7-17) mg/dL Creatinine (0.52-1.04) mg/dL Estimated GFR ML/MIN Glucose (74-106) mg/dL Calcium (8.4-10.2) mg/dL Magnesium (1.6-2.3) mg/dL Total Bilirubin (0.2-1.3) mg/dL AST (14-36) U/L ALT (0-35) U/L Alkaline Phosphatase (38-126) U/L Serum Total Protein (6.3-8.2) g/dL Albumin (3.5-5.0) g/dL Lipase (23-300) U/L Procalcitonin (0.030-0.080) ng/mL Urinalys Dipstick Clnc Urine Color (YELLOW) Urine Appearance (CLEAR) Urine pH (5-6) Ur Specific [place] (1.005-1.025) POC Urine Protein Conf (Negative) Urine Ketones (NEGATIVE) Urine Nitrite (NEGATIVE) Urine Bilirubin (NEGATIVE) Urine Urobilinogen (0-1) mg/dL Urine Leukocytes (NEGATIVE) Urine WBC (Auto) (0-5) /HPF Urine RBC (Auto) (0-2) /HPF U Epithel Cells (Auto) (FEW) /HPF Urine Bacteria (Auto) (NEGATIVE) /HPF Urine RBC (0-5) Sancho/ul Urine Mucus (Auto) (NEGATIVE) /HPF Ur Culture Indicated? Urine Glucose (NEGATIVE) mg/dL Urine HCG, Qual NEGATIVE (Negative) Influenza Type A Ag (NEGATIVE) Influenza Type B Ag (NEGATIVE) RSV (PCR) (Negative) SARS-CoV-2 (PCR) (NEGATIVE) - Progress Progress: re-examined Progress Note: 04/20/22 17:27 She is given Tylenol along with fluids, on reevaluation feeling better. She is also given a dose of Solu-Medrol. Work-up showed normal white count, c hemistries hypokalemia with a potassium of 2.7 with magnesium of 1.8. She is started on potassium replacement. We will also give her magnesium. CT showed stranding around terminal ileum/descending colon along with sigmoid consistent with Crohn associated enterocolitis. Patient has elevated procalcitonin and fever chills, could be infectious enterocolitis, given a dose of antibiotic. Discussed with Dr. Lane and patient is excepted for admission. Discussed with : Sara Will see patient in: hospital (observation) Counseled pt/family regarding: lab results, diagnosis, rad results - Departure Departure Disposition: Observation Clinical Impression: Enterocolitis, Hypokalemia Condition: Stable Critical Care Time: No
[2022-04-20] MEDS ORDERED: FLAGYL 500 MG IVPB 500 MG/100 ML BAG IV STA (17:21)
[2022-04-20] MEDS ORDERED: LEVOFLOXACIN 750MG/150ML D5W 750 MG/150 ML BAG IV STA (17:21)
[2022-04-20] MEDS ORDERED: Sterile H2O 10 ml IJ ONE (17:23)
[2022-04-20] MEDS ORDERED: solu-MEDROL ONE (17:24)
[2022-04-20] MEDS ORDERED: FLAGYL 500 MG IVPB 500 MG/100 ML BAG IV ONE (17:24)
[2022-04-20] MEDS ORDERED: Magnesium 1 Gm / 100 Ml D5W*** 100 ML IV ONE ×2 (17:29→20:05)
[2022-04-20] MEDS ORDERED: Sodium Chloride 0.9% 1000 ML 1,000 ML IV SCH (17:30)
[2022-04-20] MEDS ORDERED: DUONEB 0.5-3 MG/3 ml Neb IH PRN (18:00)
[2022-04-20] MEDS ORDERED: TYLENOL 325 MG PO PRN (18:00)
[2022-04-20] MEDS ORDERED: Levofloxacin 500MG/100ML D5W 500 MG/100 ML BAG IV ONE (18:04)
[2022-04-20] MEDS: Levofloxacin 500MG/100ML D5W 500 MG/100 ML BAG IV SCH (18:17)
[2022-04-20] MEDS: FLAGYL 500 MG IVPB 500 MG/100 ML BAG IV SCH ×2 (18:23→23:29)
[2022-04-20] MEDS ORDERED: SODIUM CHLORIDE 0.45% W/ 20 mEq KCL 0 ML IV ONE (20:05)
[2022-04-20] MEDS: Sodium Chloride 0.9% W/ 20 mEq KCl/LITER 1,000 ML IV SCH (20:12)
[2022-04-20] MEDS ORDERED: Zofran 4 MG/2 ML VIAL IV PRN (21:50)
[2022-04-21] MEDS: FLAGYL 500 MG IVPB 500 MG/100 ML BAG IV SCH ×4 (05:36→23:36)
[2022-04-21] MEDS: Sodium Chloride 0.9% W/ 20 mEq KCl/LITER 1,000 ML IV SCH (05:46)
[2022-04-21 06:13] LABS: Absolute Neutrophil Ct (ANC) 7.06 x10^3/uL (1.4-6.9); Basophil (Absolute #) 0.01 x10^3/uL (0-0.4); Eosinophil % 0.1 % (0.00-5.0); Eosinophil (Absolute #) 0.01 x10^3/uL (0-0.5); Hematocrit 30.4 % (35-47); Hemoglobin 9.2 g/dL (12.0-16.0); Lymphocytes % 11.1 % (24.0-44.0); Mean Corpuscular Hemoglobin 21.8 pg (26-32); Mean Corpuscular Hgb Concent. 30.3 g/dL (32-36); Mean Platelet Volume 9.2 fL (7.5-11.0); Monocyte (Absolute #) 0.08 x10^3/uL (0.0-1.3); Neutrophil % 87.1 % (36.0-66.0); Platelet Count 642 x10^3/uL (150-450); Red Blood Count 4.22 x10^6/uL (4.1-5.4); Red Cell Distribution Width 14.6 % (11.5-14.0); White Blood Count 8.1 x10^3/uL (4.0-10.5)
[2022-04-21 06:28] LABS: ALBUMIN 3.5 g/dL (3.5-5.0); ALKALINE PHOSPHATASE 80 U/L (38-126); ANION GAP 11.6 MEQ/L (5-15); BLOOD UREA NITROGEN 2 mg/dL (7-17); CHLORIDE 111 mmol/L (98-107); Calcium 8.6 mg/dL (8.4-10.2); Carbon Dioxide 17 mmol/L (22-30); Creatinine 1 0.63 mg/dL (0.52-1.04); EST GLOMERULAR FILTRATION RATE > 60.0 ML/MIN; Glucose 139 mg/dL (74-106); Potassium 4.1 mmol/L (3.5-5.1); SGOT/AST 15 U/L (14-36); SGPT/ALT 15 U/L (0-35); SODIUM 136 mmol/L (137-145); Total Protein 7.7 g/dL (6.3-8.2)
[2022-04-21] MEDS: PROTONIX 40 MG IV IV SCH (09:04)
[2022-04-21] MEDS: Levofloxacin 500MG/100ML D5W 500 MG/100 ML BAG IV SCH (09:04)
--- NOTE | 2022-04-21 11:16 | PCM.HP ---
History of Present Illness - Chief Complaint Chief Complaint: c/o diarrhea, weakness for 2 days History of Present Illness: is a 21 year old female.with history of Crohn's disease with chronic diarrhea presented in the ER with worsening of diarrhea along with fatigue tiredness and low-grade temperature T-max of 100 with chills. Patient reports she has minimal abdominal discomfort all over which is not any worse than usual. She feels weak all over with lack of energy to do her routine activities. Denies any chest pain palpitations or shortness of breath. No cough or URI symptoms. Denies any sick contact. Patient thinks she is having her Crohn's flareup as she had similar symptoms in the past. Timing/Duration: yesterday, gradual onset, worse Activities at Onset: rest Quality: dullness Abdominal Pain Onset Location: generalized abdomen Pain Radiation: no radiation Severity of Pain-Max: mild Severity of Pain-Current: mild Modifying Factors: Worsens With: defecating Associated Symptoms: diarrhea, fever/chills, fatigue, nausea Previous symptoms: same symptoms as today - Review of Systems Constitutional: Fatigue, Lethargy, Weakness, No Fever, No Chills Eyes: No Symptoms Ears, Nose, & Throat: No Symptoms Respiratory: No Cough, No Short Of Breath Cardiac: No Chest Pain, No Edema, No Syncope Abdominal/Gastrointestinal: Abdominal Pain, Diarrhea, No Nausea, No Vomiting Genitourinary Symptoms: No Dysuria Musculoskeletal: No Back Pain, No Neck Pain Skin: No Rash Neurological: No Dizziness, No Focal Weakness, No Sensory Changes Psychological: No Symptoms Endocrine: No Symptoms Hematologic/Lymphatic: No Symptoms Immunological/Allergic: No Symptoms Medications & Allergies Home Medications: Home Medication List No Reportable Medications [No Reported Medications] 04/20/22 [History Confirmed 04/20/22] Allergies/Adverse Reactions: Allergies Allergy/AdvReac Type Severity Reaction Status Date / Time No Known Drug Allergies Allergy Verified 04/20/22 15:26 - Past Medical History Past Medical History: Yes Neurological History: No Pertinent History ENT History: No Pertinent History Cardiac History: No Pertinent History Respiratory History: Other Endocrine Medical History: No Pertinent History Musculoskelatal History: No Pertinent History GI Medical History: Crohns Disease History: No Pertinent History Pyscho-Social History: Anxiety Reproductive Disorders: No Pertinent History Comment: COVID-19, childhood asthma - Female History Hx Last Menstrual Period: in[place]annon Are you now?: No - Past Surgical History Past Surgical History: Yes Neuro Surgical History: No Pertinent History Cardiac History: No Pertinent History Respiratory Surgery: No Pertinent History GI Surgical History: Other Genitourinary Surgical Hx: No Pertinent History Musculskeletal Surgical Hx: No Pertinent History Female Surgical History: No Pertinent History Other Surgical History: COLONOSCOPY , - Social History Smoking Status: Never smoker Exposure to second hand smoke: Yes Alcohol: None Drug Use: none - Physical Exam Vital Signs: Vital Signs - 24 hr Temp Pulse Resp BP Pulse Ox 04/21/22 08:00 96.9 F 88 18 114/63 98 04/21/22 04:00 97.3 F 92 H 16 118/68 98 04/21/22 00:00 97.0 F 91 H 16 117/62 97 04/20/22 20:26 100 H 18 99 04/20/22 20:00 97.1 F 105 H 16 126/71 98 04/20/22 18:31 97.5 F 98 H 18 153/84 99 04/20/22 18:04 97.5 F 98 H 18 133/84 99 04/20/22 17:29 99 04/20/22 17:14 97.8 F 112 H 20 110/70 98 04/20/22 16:48 97.8 F 102 H 20 113/73 99 04/20/22 15:27 97.2 F 109 H 18 137/93 97 General Appearance: no apparent distress, alert Neurologic Exam: alert, oriented x 3, cooperative, normal mood/affect, nml cerebellar function, nml station & gait, sensation nml, No motor deficits Eye Exam: PERRL/EOMI, eyes nml inspection Ears, Nose, Throat Exam: normal ENT inspection, TMs normal, pharynx normal, moist mucous membranes Neck Exam: normal inspection, non-tender, supple, full range of motion Respiratory Exam: normal breath sounds, lungs clear, No respiratory distress Cardiovascular Exam: regular rate/rhythm, normal heart sounds, normal peripheral pulses Gastrointestinal/Abdomen Exam: soft, normal bowel sounds, No tenderness, No distention, No mass, No guarding Back Exam: normal inspection, normal range of motion, No CVA tenderness, No vertebral tenderness Extremity Exam: normal inspection, normal range of motion, pelvis stable Skin Exam: normal color, warm, dry, No rash Lymphatic Exam: No adenopathy Results - Labs Lab/Micro Results: Lab Results-Last 24 Hours 04/20/22 04/20/22 04/20/22 Range/Units 15:43 15:53 15:55 WBC 9.5 (4.0-10.5) x10^3/uL RBC 4.30 (4.1-5.4) x10^6/uL Hgb 9.5 L (12.0-16.0) g/dL Hct 30.6 L (35-47) % MCV 71.2 L (78-100) fL MCH 22.1 L (26-32) pg MCHC 31.0 L (32-36) g/dL RDW 14.5 H (11.5-14.0) % Plt Count 626 H (150-450) x10^3/uL MPV 8.8 (7.5-11.0) fL Gran % 63.4 (36.0-66.0) % Immature Gran % (Auto) 0.8 H (0.00-0.4) % Nucleat RBC Rel Count 0.0 (0.00-0.1) % Eos # (Auto) 0.14 (0-0.5) x10^3/uL Immature Gran # (Auto) 0.08 H (0.00-0.03) x10^3u/L Absolute Lymphs (auto) 2.13 (1.0-4.6) x10^3/uL Absolute Monos (auto) 1.09 (0.0-1.3) x10^3/uL Absolute Nucleated RBC 0.00 (0.00-0.01) x10^3u/L Lymphocytes % 22.5 L (24.0-44.0) % Monocytes % 11.5 (0.0-12.0) % Eosinophils % 1.5 (0.00-5.0) % Basophils % 0.3 (0.0-0.4) % Absolute Granulocytes 6.00 (1.4-6.9) x10^3/uL Basophils # 0.03 (0-0.4) x10^3/uL Sodium (137-145) mmol/L Potassium (3.5-5.1) mmol/L Chloride (98-107) mmol/L Carbon Dioxide (22-30) mmol/L Anion Gap (5-15) MEQ/L BUN (7-17) mg/dL Creatinine (0.52-1.04) mg/dL Estimated GFR ML/MIN Glucose (74-106) mg/dL Calcium (8.4-10.2) mg/dL Magnesium (1.6-2.3) mg/dL Total Bilirubin (0.2-1.3) mg/dL AST (14-36) U/L ALT (0-35) U/L Alkaline Phosphatase (38-126) U/L Serum Total Protein (6.3-8.2) g/dL Albumin (3.5-5.0) g/dL Lipase (23-300) U/L Procalcitonin (0.030-0.080) ng/mL Urinalys Dipstick Clnc MAIN LAB Urine Color YELLOW (YELLOW) Urine Appearance CLEAR (CLEAR) Urine pH 6.0 (5-6) Ur Specific [place] 1.015 (1.005-1.025) POC Urine Protein Conf 30 A (Negative) Urine Ketones NEGATIVE (NEGATIVE) Urine Nitrite NEGATIVE (NEGATIVE) Urine Bilirubin NEGATIVE (NEGATIVE) Urine Urobilinogen 0.2 (0-1) mg/dL Urine Leukocytes NEGATIVE (NEGATIVE) Urine WBC (Auto) 6-10 A (0-5) /HPF Urine RBC (Auto) 11-15 A (0-2) /HPF U Epithel Cells (Auto) NONE (FEW) /HPF Urine Bacteria (Auto) FEW A (NEGATIVE) /HPF Urine RBC LARGE A (0-5) Sancho/ul Urine Mucus (Auto) SLIGHT A (NEGATIVE) /HPF Ur Culture Indicated? YES Urine Glucose NEGATIVE (NEGATIVE) mg/dL Urine HCG, Qual NEGATIVE (Negative) Influenza Type A Ag (NEGATIVE) Influenza Type B Ag (NEGATIVE) RSV (PCR) (Negative) SARS-CoV-2 (PCR) (NEGATIVE) 04/20/22 04/20/22 04/20/22 Range/Units 15:55 15:55 15:55 WBC (4.0-10.5) x10^3/uL RBC (4.1-5.4) x10^6/uL Hgb (12.0-16.0) g/dL Hct (35-47) % MCV (78-100) fL MCH (26-32) pg MCHC (32-36) g/dL RDW (11.5-14.0) % Plt Count (150-450) x10^3/uL MPV (7.5-11.0) fL Gran % (36.0-66.0) % Immature Gran % (Auto) (0.00-0.4) % Nucleat RBC Rel Count (0.00-0.1) % Eos # (Auto) (0-0.5) x10^3/uL Immature Gran # (Auto) (0.00-0.03) x10^3u/L Absolute Lymphs (auto) (1.0-4.6) x10^3/uL Absolute Monos (auto) (0.0-1.3) x10^3/uL Absolute Nucleated RBC (0.00-0.01) x10^3u/L Lymphocytes % (24.0-44.0) % Monocytes % (0.0-12.0) % Eosinophils % (0.00-5.0) % Basophils % (0.0-0.4) % Absolute Granulocytes (1.4-6.9) x10^3/uL Basophils # (0-0.4) x10^3/uL Sodium 133 L (137-145) mmol/L Potassium 2.7 L* (3.5-5.1) mmol/L Chloride 98 (98-107) mmol/L Carbon Dioxide 26 (22-30) mmol/L Anion Gap 11.9 (5-15) MEQ/L BUN 4 L (7-17) mg/dL Creatinine 0.90 (0.52-1.04) mg/dL Estimated GFR > 60.0 ML/MIN Glucose 101 (74-106) mg/dL Calcium 8.6 (8.4-10.2) mg/dL Magnesium (1.6-2.3) mg/dL Total Bilirubin 0.60 (0.2-1.3) mg/dL AST 37 H (14-36) U/L ALT 15 (0-35) U/L Alkaline Phosphatase 90 (38-126) U/L Serum Total Protein 8.3 H (6.3-8.2) g/dL Albumin 3.9 (3.5-5.0) g/dL Lipase 103 (23-300) U/L Procalcitonin 0.114 H (0.030-0.080) ng/mL Urinalys Dipstick Clnc Urine Color (YELLOW) Urine Appearance (CLEAR) Urine pH (5-6) Ur Specific [place] (1.005-1.025) POC Urine Protein Conf (Negative) Urine Ketones (NEGATIVE) Urine Nitrite (NEGATIVE) Urine Bilirubin (NEGATIVE) Urine Urobilinogen (0-1) mg/dL Urine Leukocytes (NEGATIVE) Urine WBC (Auto) (0-5) /HPF Urine RBC (Auto) (0-2) /HPF U Epithel Cells (Auto) (FEW) /HPF Urine Bacteria (Auto) (NEGATIVE) /HPF Urine RBC (0-5) Sancho/ul Urine Mucus (Auto) (NEGATIVE) /HPF Ur Culture Indicated? Urine Glucose (NEGATIVE) mg/dL Urine HCG, Qual (Negative) Influenza Type A Ag NEGATIVE (NEGATIVE) Influenza Type B Ag NEGATIVE (NEGATIVE) RSV (PCR) NEGATIVE (Negative) SARS-CoV-2 (PCR) NEGATIVE (NEGATIVE) 04/20/22 04/20/22 04/21/22 Range/Units 15:55 23:00 05:50 WBC 8.1 (4.0-10.5) x10^3/uL RBC 4.22 (4.1-5.4) x10^6/uL Hgb 9.2 L (12.0-16.0) g/dL Hct 30.4 L (35-47) % MCV 72.0 L (78-100) fL MCH 21.8 L (26-32) pg MCHC 30.3 L (32-36) g/dL RDW 14.6 H (11.5-14.0) % Plt Count 642 H (150-450) x10^3/uL MPV 9.2 (7.5-11.0) fL Gran % 87.1 H (36.0-66.0) % Immature Gran % (Auto) 0.6 H (0.00-0.4) % Nucleat RBC Rel Count 0.0 (0.00-0.1) % Eos # (Auto) 0.01 (0-0.5) x10^3/uL Immature Gran # (Auto) 0.05 H (0.00-0.03) x10^3u/L Absolute Lymphs (auto) 0.90 L (1.0-4.6) x10^3/uL Absolute Monos (auto) 0.08 (0.0-1.3) x10^3/uL Absolute Nucleated RBC 0.00 (0.00-0.01) x10^3u/L Lymphocytes % 11.1 L (24.0-44.0) % Monocytes % 1.0 (0.0-12.0) % Eosinophils % 0.1 (0.00-5.0) % Basophils % 0.1 (0.0-0.4) % Absolute Granulocytes 7.06 H (1.4-6.9) x10^3/uL Basophils # 0.01 (0-0.4) x10^3/uL Sodium (137-145) mmol/L Potassium 3.7 D (3.5-5.1) mmol/L Chloride (98-107) mmol/L Carbon Dioxide (22-30) mmol/L Anion Gap (5-15) MEQ/L BUN (7-17) mg/dL Creatinine (0.52-1.04) mg/dL Estimated GFR ML/MIN Glucose (74-106) mg/dL Calcium (8.4-10.2) mg/dL Magnesium 1.8 (1.6-2.3) mg/dL Total Bilirubin (0.2-1.3) mg/dL AST (14-36) U/L ALT (0-35) U/L Alkaline Phosphatase (38-126) U/L Serum Total Protein (6.3-8.2) g/dL Albumin (3.5-5.0) g/dL Lipase (23-300) U/L Procalcitonin (0.030-0.080) ng/mL Urinalys Dipstick Clnc Urine Color (YELLOW) Urine Appearance (CLEAR) Urine pH (5-6) Ur Specific [place] (1.005-1.025) POC Urine Protein Conf (Negative) Urine Ketones (NEGATIVE) Urine Nitrite (NEGATIVE) Urine Bilirubin (NEGATIVE) Urine Urobilinogen (0-1) mg/dL Urine Leukocytes (NEGATIVE) Urine WBC (Auto) (0-5) /HPF Urine RBC (Auto) (0-2) /HPF U Epithel Cells (Auto) (FEW) /HPF Urine Bacteria (Auto) (NEGATIVE) /HPF Urine RBC (0-5) Sancho/ul Urine Mucus (Auto) (NEGATIVE) /HPF Ur Culture Indicated? Urine Glucose (NEGATIVE) mg/dL Urine HCG, Qual (Negative) Influenza Type A Ag (NEGATIVE) Influenza Type B Ag (NEGATIVE) RSV (PCR) (Negative) SARS-CoV-2 (PCR) (NEGATIVE) 04/21/22 Range/Units 05:50 WBC (4.0-10.5) x10^3/uL RBC (4.1-5.4) x10^6/uL Hgb (12.0-16.0) g/dL Hct (35-47) % MCV (78-100) fL MCH (26-32) pg MCHC (32-36) g/dL RDW (11.5-14.0) % Plt Count (150-450) x10^3/uL MPV (7.5-11.0) fL Gran % (36.0-66.0) % Immature Gran % (Auto) (0.00-0.4) % Nucleat RBC Rel Count (0.00-0.1) % Eos # (Auto) (0-0.5) x10^3/uL Immature Gran # (Auto) (0.00-0.03) x10^3u/L Absolute Lymphs (auto) (1.0-4.6) x10^3/uL Absolute Monos (auto) (0.0-1.3) x10^3/uL Absolute Nucleated RBC (0.00-0.01) x10^3u/L Lymphocytes % (24.0-44.0) % Monocytes % (0.0-12.0) % Eosinophils % (0.00-5.0) % Basophils % (0.0-0.4) % Absolute Granulocytes (1.4-6.9) x10^3/uL Basophils # (0-0.4) x10^3/uL Sodium 136 L (137-145) mmol/L Potassium 4.1 (3.5-5.1) mmol/L Chloride 111 H D (98-107) mmol/L Carbon Dioxide 17 L (22-30) mmol/L Anion Gap 11.6 (5-15) MEQ/L BUN 2 L (7-17) mg/dL Creatinine 0.63 (0.52-1.04) mg/dL Estimated GFR > 60.0 ML/MIN Glucose 139 H (74-106) mg/dL Calcium 8.6 (8.4-10.2) mg/dL Magnesium (1.6-2.3) mg/dL Total Bilirubin 0.40 (0.2-1.3) mg/dL AST 15 (14-36) U/L ALT 15 (0-35) U/L Alkaline Phosphatase 80 (38-126) U/L Serum Total Protein 7.7 (6.3-8.2) g/dL Albumin 3.5 (3.5-5.0) g/dL Lipase (23-300) U/L Procalcitonin (0.030-0.080) ng/mL Urinalys Dipstick Clnc Urine Color (YELLOW) Urine Appearance (CLEAR) Urine pH (5-6) Ur Specific [place] (1.005-1.025) POC Urine Protein Conf (Negative) Urine Ketones (NEGATIVE) Urine Nitrite (NEGATIVE) Urine Bilirubin (NEGATIVE) Urine Urobilinogen (0-1) mg/dL Urine Leukocytes (NEGATIVE) Urine WBC (Auto) (0-5) /HPF Urine RBC (Auto) (0-2) /HPF U Epithel Cells (Auto) (FEW) /HPF Urine Bacteria (Auto) (NEGATIVE) /HPF Urine RBC (0-5) Sancho/ul Urine Mucus (Auto) (NEGATIVE) /HPF Ur Culture Indicated? Urine Glucose (NEGATIVE) mg/dL Urine HCG, Qual (Negative) Influenza Type A Ag (NEGATIVE) Influenza Type B Ag (NEGATIVE) RSV (PCR) (Negative) SARS-CoV-2 (PCR) (NEGATIVE) Microbiology 04/20/22 15:53 Urine Culture - Preliminary Urine, Void NO GROWTH TO DATE - Radiology Impressions Radiology Exams & Impressions: Radiology Procedures Category Date Time Status ABDOMEN AND PELVIS W/0 CONTRAS [CT] Stat Exams 04/20/22 15:[address]/ABDOMEN AND PELVIS W/0 CONTRAS Indication: Abdominal pain. History Crohn's disease. "Crohn's flareup." Multiple contiguous axial images obtained through the abdomen and pelvis without contrast. Comparison: June 03, 2021 Lung bases remain clear. Heart not enlarged. Noncontrasted stomach and bowel loops again nonobstructed. Normal appendix. Terminal ileum again demonstrates abnormal circumferential wall thickening with stranding favoring exacerbation Crohn's disease. Descending and sigmoid colon demonstrates mild wall thickening with minimal stranding also presume related Crohn's disease. Tiny pelvic free fluid. No walled off fluid collection or free air. Remaining liver, gallbladder, pancreas, spleen, adrenal glands, kidneys, ureters, bladder, uterus, and aorta are unremarkable for noncontrast exam. Osseous structures intact. Impression: Again abnormal circumferential wall thickening terminal ileum and lesser degree descending/sigmoid colon with stranding favoring exacerbation Crohn's disease. Tiny reactive pelvic free fluid. Assessment/Plan (1) Enterocolitis Current Visit: Yes Status: Acute Assessment & Plan: Chief Complaint Diagnosis enterocolitis, hypokalemia Allergies Allergy/AdvReac Type Severity Reaction Status Date / Time No Known Drug Allergies Allergy Verified 04/20/22 15:26 Vital Signs (Last 24 hours) Temp Pulse Resp BP Pulse Ox 04/21/22 08:00 96.9 F 88 18 114/63 98 04/21/22 04:00 97.3 F 92 H 16 118/68 98 04/21/22 00:00 97.0 F 91 H 16 117/62 97 04/20/22 20:26 100 H 18 99 04/20/22 20:00 97.1 F 105 H 16 126/71 98 04/20/22 18:31 97.5 F 98 H 18 153/84 99 04/20/22 18:04 97.5 F 98 H 18 133/84 99 04/20/22 17:29 99 04/20/22 17:14 97.8 F 112 H 20 110/70 98 04/20/22 16:48 97.8 F 102 H 20 113/73 99 04/20/22 15:27 97.2 F 109 H 18 137/93 97 Home Medications Medication Instructions Recorded Confirmed Last Taken Type No Reportable Medications [No 04/20/22 04/20/22 Unknown History Reported Medications] Current Medications Generic Name Dose Route Start Last Admin Trade Name Freq PRN Reason Stop Dose Admin Acetaminophen 650 mg 04/20/22 18:00 Acetaminophen 325 Mg Tablet PO 05/20/22 17:59 Q4H PRN PRN PAIN AND/OR FEVER Potassium Chloride/Sodium Chloride 1,000 mls @ 100 mls/hr 04/20/22 18:00 04/21/22 05:46 Sodium Chloride 0.9% W/ 20 Meq Kcl/Liter IV 05/20/22 17:59 100 mls/hr .Q10H SIERRA Administration Levofloxacin/Dextrose 500 mg in 100 mls @ 100 mls/hr 04/21/22 10:00 04/21/22 09:04 Levofloxacin 500mg/100ml D5w IV 05/21/22 09:59 100 mls/hr Q24H10 SIERRA Administration Metronidazole 500 mg in 100 mls @ 200 mls/hr 04/20/22 18:00 04/21/22 05:36 Flagyl 500 Mg Ivpb IV 05/20/22 17:59 200 mls/hr Q6HT SIERRA Administration Ondansetron HCl 4 mg 04/20/22 21:50 Ondansetron Hcl 4 Mg/2 Ml Vial IV 05/20/22 21:49 Q6H PRN PRN NAUSEA/VOMITING Pantoprazole Sodium 40 mg 04/21/22 10:00 04/21/22 09:04 Pantoprazole 40 Mg Vial IV 05/21/22 09:59 40 mg Q24H10 SIERRA Administration Discontinued Medications Generic Name Dose Route Start Last Admin Trade Name Freq PRN Reason Stop Dose Admin Acetaminophen 975 mg 04/20/22 15:43 04/20/22 15:55 Acetaminophen 325 Mg Tablet PO 04/20/22 15:44 975 mg STAT STA Administration Acetaminophen Confirm 04/20/22 15:54 Acetaminophen 325 Mg Tablet Administered 04/20/22 15:55 Dose 975 mg .ROUTE .STK-MED ONE Albuterol/Ipratropium 3 ml 04/20/22 18:00 Ipratropium/Albuterol Sulfate 3 Ml Ampul.Neb IH 05/20/22 17:59 Q4HPRN PRN SHORTNESS OF BREATH/WHEEZING Methylprednisolone Sodium 0 mg 04/20/22 17:02 04/20/22 17:26 Succinate 125 mg/ Sterile IV 04/20/22 17:03 125 mg Water 2 ml STAT ONE Administration Sodium Chloride 1,000 mls @ 999 mls/hr 04/20/22 15:43 04/20/22 17:07 Sodium Chloride 0.9% 1000 Ml IV 04/20/22 16:43 Infused .Q1H1M STA Infusion Sodium Chloride Confirm 04/20/22 15:54 Sodium Chloride 0.9% 1000 Ml Administered 04/20/22 15:55 Dose 1,000 mls @ ud .ROUTE .STK-MED ONE Potassium Chloride 20 meq in 100 mls @ 50 mls/hr 04/20/22 16:30 04/20/22 18:23 Potassium Chloride 20 Meq In Water 100ml IV 04/20/22 20:29 50 mls/hr Q2H SIERRA Administration Levofloxacin/Dextrose 750 mg in 150 mls @ 100 mls/hr 04/20/22 17:21 04/20/22 19:02 Levofloxacin 750mg/150ml D5w IV 04/20/22 18:50 Not Given STAT STA Metronidazole 500 mg in 100 mls @ 200 mls/hr 04/20/22 17:21 04/20/22 17:27 Flagyl 500 Mg Ivpb IV 04/20/22 17:50 200 mls/hr STAT STA 200 mls/hr Administration Sodium Chloride 1,000 mls @ 100 mls/hr 04/20/22 17:30 04/20/22 17:26 Sodium Chloride 0.9% 1000 Ml IV 05/20/22 17:29 100 mls/hr .Q10H SIER[place] Administration Metronidazole Confirm 04/20/22 17:24 Flagyl 500 Mg Ivpb Administered 04/20/22 17:25 Dose 500 mg in 100 mls @ ud IV .STK-MED ONE Magnesium Sulfate/Dextrose 100 mls @ 200 mls/hr 04/20/22 17:29 04/20/22 20:15 Magnesium 1 Gm / 100 Ml D5w IV 04/20/22 17:58 200 mls/hr STAT ONE Administration Potassium Chloride Confirm 04/20/22 16:31 Potassium Chloride 20 Meq In Water 100ml Administered 04/20/22 16:32 Dose 100 mls @ ud IV .STK-MED ONE Sodium Chloride Confirm 04/20/22 17:24 Sodium Chloride 0.9% 1000 Ml Administered 04/20/22 17:25 Dose 1,000 mls @ ud .ROUTE .STK-MED ONE Levofloxacin/Dextrose Confirm 04/20/22 18:04 Levofloxacin 500mg/100ml D5w Administered 04/20/22 18:05 Dose 500 mg in 100 mls @ ud IV .STK-MED ONE Potassium Chloride Confirm 04/20/22 18:06 Potassium Chloride 20 Meq In Water 100ml Administered 04/20/22 18:07 Dose 100 mls @ ud IV .STK-MED ONE Potassium Chloride/Sodium Chloride Confirm 04/20/22 20:05 Sodium Chloride 0.45% W/ 20 Meq Kcl Administered 04/20/22 20:06 Dose 1,000 mls @ ud IV .STK-MED ONE Magnesium Sulfate/Dextrose Confirm 04/20/22 20:05 Magnesium 1 Gm / 100 Ml D5w Administered 04/20/22 20:06 Dose 100 mls @ ud IV .STK-MED ONE Methylprednisolone Sodium Succinate Confirm 04/20/22 17:24 Methylprednis Sod Succ 125 Mg/2 Ml Vial Administered 04/20/22 17:25 Dose 125 mg .ROUTE .STK-MED ONE Potassium Chloride 40 meq 04/20/22 16:29 04/20/22 16:33 Potassium Chloride Tab 10 Meq Tab PO 04/20/22 16:30 40 meq STAT ONE Administration Potassium Chloride Confirm 04/20/22 16:31 Potassium Chloride Tab 10 Meq Tab Administered 04/20/22 16:32 Dose 40 meq PO .STK-MED ONE Sterile Water Confirm 04/20/22 17:23 Water For Injection,Sterile 10 Ml Vial Administered 04/20/22 17:24 Dose 10 ml IJ .STK-MED ONE Intake & Output (Last 24 hours) 04/18/22 04/19/22 04/20/22 04/21/22 11:59 11:59 11:59 11:59 Intake Total 2390 Balance 2390 Weight 90.4 kg Microbiology Results (Last 24 hours) 04/20/22 15:53 Urine, Void Urine Culture - Preliminary NO GROWTH TO DATE Laboratory Results (Last 24 hours) 04/21/22 04/21/22 04/20/22 05:50 05:50 23:00 WBC 8.1 RBC 4.22 Hgb 9.2 L Hct 30.4 L MCV 72.0 L MCH 21.8 L MCHC 30.3 L RDW 14.6 H Plt Count 642 H MPV 9.2 Gran % 87.1 H Immature Gran % (Auto) 0.6 H Nucleat RBC Rel Count 0.0 Eos # (Auto) 0.01 Immature Gran # (Auto) 0.05 H Absolute Lymphs (auto) 0.90 L Absolute Monos (auto) 0.08 Absolute Nucleated RBC 0.00 Lymphocytes % 11.1 L Monocytes % 1.0 Eosinophils % 0.1 Basophils % 0.1 Absolute Granulocytes 7.06 H Basophils # 0.01 Sodium 136 L Potassium 4.1 3.7 D Chloride 111 H D Carbon Dioxide 17 L Anion Gap 11.6 BUN 2 L Creatinine 0.63 Estimated GFR > 60.0 Glucose 139 H Calcium 8.6 Magnesium Total Bilirubin 0.40 AST 15 ALT 15 Alkaline Phosphatase 80 Serum Total Protein 7.7 Albumin 3.5 Lipase Procalcitonin Urinalys Dipstick Clnc Urine Color Urine Appearance Urine pH Ur Specific [place] POC Urine Protein Conf Urine Ketones Urine Nitrite Urine Bilirubin Urine Urobilinogen Urine Leukocytes Urine WBC (Auto) Urine RBC (Auto) U Epithel Cells (Auto) Urine Bacteria (Auto) Urine RBC Urine Mucus (Auto) Ur Culture Indicated? Urine Glucose Urine HCG, Qual Influenza Type A Ag Influenza Type B Ag RSV (PCR) SARS-CoV-2 (PCR) 04/20/22 04/20/22 04/20/22 15:55 15:55 15:55 WBC RBC Hgb Hct MCV MCH MCHC RDW Plt Count MPV Gran % Immature Gran % (Auto) Nucleat RBC Rel Count Eos # (Auto) Immature Gran # (Auto) Absolute Lymphs (auto) Absolute Monos (auto) Absolute Nucleated RBC Lymphocytes % Monocytes % Eosinophils % Basophils % Absolute Granulocytes Basophils # Sodium Potassium Chloride Carbon Dioxide Anion Gap BUN Creatinine Estimated GFR Glucose Calcium Magnesium 1.8 Total Bilirubin AST ALT Alkaline Phosphatase Serum Total Protein Albumin Lipase Procalcitonin 0.114 H Urinalys Dipstick Clnc Urine Color Urine Appearance Urine pH Ur Specific [place] POC Urine Protein Conf Urine Ketones Urine Nitrite Urine Bilirubin Urine Urobilinogen Urine Leukocytes Urine WBC (Auto) Urine RBC (Auto) U Epithel Cells (Auto) Urine Bacteria (Auto) Urine RBC Urine Mucus (Auto) Ur Culture Indicated? Urine Glucose Urine HCG, Qual Influenza Type A Ag NEGATIVE Influenza Type B Ag NEGATIVE RSV (PCR) NEGATIVE SARS-CoV-2 (PCR) NEGATIVE 04/20/22 04/20/22 04/20/22 15:55 15:55 15:53 WBC 9.5 RBC 4.30 Hgb 9.5 L Hct 30.6 L MCV 71.2 L MCH 22.1 L MCHC 31.0 L RDW 14.5 H Plt Count 626 H MPV 8.8 Gran % 63.4 Immature Gran % (Auto) 0.8 H Nucleat RBC Rel Count 0.0 Eos # (Auto) 0.14 Immature Gran # (Auto) 0.08 H Absolute Lymphs (auto) 2.13 Absolute Monos (auto) 1.09 Absolute Nucleated RBC 0.00 Lymphocytes % 22.5 L Monocytes % 11.5 Eosinophils % 1.5 Basophils % 0.3 Absolute Granulocytes 6.00 Basophils # 0.03 Sodium 133 L Potassium 2.7 L* Chloride 98 Carbon Dioxide 26 Anion Gap 11.9 BUN 4 L Creatinine 0.90 Estimated GFR > 60.0 Glucose 101 Calcium 8.6 Magnesium Total Bilirubin 0.60 AST 37 H ALT 15 Alkaline Phosphatase 90 Serum Total Protein 8.3 H Albumin 3.9 Lipase 103 Procalcitonin Urinalys Dipstick Clnc MAIN LAB Urine Color YELLOW Urine Appearance CLEAR Urine pH 6.0 Ur Specific [place] 1.015 POC Urine Protein Conf 30 A Urine Ketones NEGATIVE Urine Nitrite NEGATIVE Urine Bilirubin NEGATIVE Urine Urobilinogen 0.2 Urine Leukocytes NEGATIVE Urine WBC (Auto) 6-10 A Urine RBC (Auto) 11-15 A U Epithel Cells (Auto) NONE Urine Bacteria (Auto) FEW A Urine RBC LARGE A Urine Mucus (Auto) SLIGHT A Ur Culture Indicated? YES Urine Glucose NEGATIVE Urine HCG, Qual Influenza Type A Ag Influenza Type B Ag RSV (PCR) SARS-CoV-2 (PCR) 04/20/22 15:43 WBC RBC Hgb Hct MCV MCH MCHC RDW Plt Count MPV Gran % Immature Gran % (Auto) Nucleat RBC Rel Count Eos # (Auto) Immature Gran # (Auto) Absolute Lymphs (auto) Absolute Monos (auto) Absolute Nucleated RBC Lymphocytes % Monocytes % Eosinophils % Basophils % Absolute Granulocytes Basophils # Sodium Potassium Chloride Carbon Dioxide Anion Gap BUN Creatinine Estimated GFR Glucose Calcium Magnesium Total Bilirubin AST ALT Alkaline Phosphatase Serum Total Protein Albumin Lipase Procalcitonin Urinalys Dipstick Clnc Urine Color Urine Appearance Urine pH Ur Specific [place] POC Urine Protein Conf Urine Ketones Urine Nitrite Urine Bilirubin Urine Urobilinogen Urine Leukocytes Urine WBC (Auto) Urine RBC (Auto) U Epithel Cells (Auto) Urine Bacteria (Auto) Urine RBC Urine Mucus (Auto) Ur Culture Indicated? Urine Glucose Urine HCG, Qual NEGATIVE Influenza Type A Ag Influenza Type B Ag RSV (PCR) SARS-CoV-2 (PCR) Orders (Last 24 hours) Category Date Time Status Bedrest ROUTINE Activity 04/20/22 18:00 Active Up With Assistance ROUTINE Activity 04/20/22 18:00 Active Code Status Order ROUTINE Care 04/20/22 18:00 Active Fall Protocol Q1H Care 04/20/22 18:00 Active IV Care Q6H Care 04/20/22 18:00 Active IV Insertion STAT Care 04/20/22 15:[address] in Observation ROUTINE Care 04/20/22 18:00 Active [facility] ROUTINE Care 04/20/22 18:00 Active Telemetry q4h Care 04/20/22 16:29 Completed Telemetry q6h Care 04/20/22 17:54 Active House Regular Diet Diet 04/21/22 Breakfast Active ABDOMEN AND PELVIS W/0 CONTRAS [CT] Stat Exams 04/20/22 15:43 Completed CBC W DIFF AM.LAB Lab 04/21/22 05:50 Completed CBC W DIFF Stat Lab 04/20/22 15:55 Completed CMP AM.LAB Lab 04/21/22 05:50 Completed CMP Stat Lab 04/20/22 15:55 Completed COVID/FLU/RSV Panel Stat Lab 04/20/22 15:55 Completed CULTURE,URINE Stat Lab 04/20/22 15:53 Results HCG,QUALITATIVE URINE Stat Lab 04/20/22 15:43 Completed LIPASE Stat Lab 04/20/22 15:55 Completed MAG [MAGNESIUM] Stat Lab 04/20/22 15:55 Completed PROCALCITONIN Stat Lab 04/20/22 15:55 Completed Pot [Potassium] Urgent Lab 04/20/22 23:00 Completed UA W/RFX CULTURE Stat Lab 04/20/22 15:53 Completed Acetaminophen 325 mg [Tylenol 325 mg] Med 04/20/22 18:00 Active 650 mg PO Q4H PRN PRN Acetaminophen 325 mg [Tylenol 325 mg] Med 04/20/22 15:54 Discontinued 975 mg .ROUTE .STK-MED ONE Acetaminophen 325 mg [Tylenol 325 mg] Med 04/20/22 15:43 Discontinued 975 mg PO STAT STA Albuterol/Ipratropium 3ml Neb* [DUONEB 0.5-3 MG/3 ml Med 04/20/22 18:00 Discontinued Neb] 3 ml IH Q4HPRN PRN Levofloxacin [Levofloxacin 500MG/100ML D5W] Med 04/21/22 10:00 Active 500 mg in 100 ml IV Q24H10 Levofloxacin [Levofloxacin 500MG/100ML D5W] Med 04/20/22 18:04 Discontinued 500 mg in 100 ml IV UD Levofloxacin [Levofloxacin 750Mg/150Ml D5w] Med 04/20/22 17:21 Discontinued 750 mg in 150 ml IV STAT Magnesium Sulfate 1 gm/100 ml* [Magnesium 1 Gm / 100 Ml Med 04/20/22 17:29 Discontinued D5W] 100 ml IV STAT Magnesium Sulfate 1 gm/100 ml* [Magnesium 1 Gm / 100 Ml Med 04/20/22 20:05 Discontinued D5W] 100 ml IV UD Methylprednis Sod Succ 125 mg* [solu-MEDROL] Med 04/20/22 17:24 Discontinued 125 mg .ROUTE .STK-MED ONE Methylprednis Sod Succ 125 mg* [solu-MEDROL] 125 mg Med 04/20/22 17:02 Discontinued Water For Injection,Sterile [Sterile H2O 10 ml] 2 ml IV STAT Metronidazole 500 mg Premix [Flagyl 500 mg Ivpb] Med 04/20/22 18:00 Active 500 mg in 100 ml IV Q6HT Metronidazole 500 mg Premix [Flagyl 500 mg Ivpb] Med 04/20/22 17:21 Discontinued 500 mg in 100 ml IV STAT Metronidazole 500 mg Premix [Flagyl 500 mg Ivpb] Med 04/20/22 17:24 Discontinued 500 mg in 100 ml IV UD NaCl 0.45% 1000 ml + KCl 20Meq [SODIUM CHLORIDE 0.45% W Med 04/20/22 20:05 Discontinued / 20 mEq KCL] 1,000 ml IV UD NaCl 0.9% 1000 ml + KCl 20 Meq [Sodium Chloride 0.9% W/ Med 04/20/22 18:00 Active 20 mEq KCl/LITER] 1,000 ml IV 100 mls/hr NaCl 0.9% 1000 ml [Sodium Chloride 0.9% 1000 ML] 1,000 Med 04/20/22 15:54 Discontinued ml .ROUTE UD NaCl 0.9% 1000 ml [Sodium Chloride 0.9% 1000 ML] 1,000 Med 04/20/22 17:24 Discontinued ml .ROUTE UD NaCl 0.9% 1000 ml [Sodium Chloride 0.9% 1000 ML] 1,000 Med 04/20/22 17:30 Discontinued ml IV 100 mls/hr NaCl 0.9% 1000 ml [Sodium Chloride 0.9% 1000 ML] 1,000 Med 04/20/22 15:43 Discontinued ml IV 999 mls/hr Ondansetron HCl 4 mg/2 ml [Zofran 4 MG/2 ML VIAL] Med 04/20/22 21:50 Active 4 mg IV Q6H PRN PRN Pantoprazole 40 mg [Protonix 40 mg IV] Med 04/21/22 10:00 Active 40 mg IV Q24H10 Potassium Chloride 20Meq/100Ml [POTASSIUM CHLORIDE 20 Med 04/20/22 16:30 Discontinued mEq IN WATER 100ML] 20 meq in 100 ml IV Q2H Potassium Chloride 20Meq/100Ml [POTASSIUM CHLORIDE 20 Med 04/20/22 16:31 Discontinued mEq IN WATER 100ML] 100 ml IV UD Potassium Chloride 20Meq/100Ml [POTASSIUM CHLORIDE 20 Med 04/20/22 18:06 Discontinued mEq IN WATER 100ML] 100 ml IV UD Potassium Chloride Tab* [Klor Con] Med 04/20/22 16:31 Discontinued 40 meq PO .STK-MED ONE Potassium Chloride Tab* [Klor Con] Med 04/20/22 16:29 Discontinued 40 meq PO STAT ONE Water For Injection,Sterile [Sterile H2O 10 ml] Med 04/20/22 17:23 Discontinued 10 ml IJ .STK-MED ONE Respiratory Therapy Assessment DAILY RT 04/20/22 20:26 Completed Patient Care Notes (Last 24 hours) 04/20/22 20:32 Respiratory Note by Ruiz Glass PT DENIES ANY SOB, DOESN'T USE RESP MEDS AT , HASN'T HAD ISSUES W/ ASTHMA SINCE BEING A CHILD, NO WHEEZING OR DISTRESS NOTED, CANCELLED NEB TX AT THIS TIME. Initialized on 04/20/22 20:32 - END OF NOTE Code(s): K52.9 - NONINFECTIVE GASTROENTERITIS AND COLITIS, UNSPECIFIED (2) Hypokalemia Current Visit: Yes Status: Resolved Code(s): E87.6 - HYPOKALEMIA (3) Exacerbation of Crohn's disease Current Visit: Yes Status: Acute Qualifiers: Digestive disease complication type: other complication Qualified Code(s): K50.918 - Crohn's disease, unspecified, with other complication Code(s): K50.90 - CROHN'S DISEASE, UNSPECIFIED, WITHOUT COMPLICATIONS (4) Asthma Current Visit: Yes Status: Chronic Qualifiers: Asthma severity: mild Asthma complication type: uncomplicated Code(s): J45.909 - UNSPECIFIED ASTHMA, UNCOMPLICATED
[2022-04-22] MEDS: Sodium Chloride 0.9% W/ 20 mEq KCl/LITER 1,000 ML IV SCH (02:31)
[2022-04-22] MEDS: FLAGYL 500 MG IVPB 500 MG/100 ML BAG IV SCH ×2 (05:56→12:49)
[2022-04-22] MEDS: PROTONIX 40 MG IV IV SCH (09:12)
[2022-04-22] MEDS: Levofloxacin 500MG/100ML D5W 500 MG/100 ML BAG IV SCH (09:12)
[2022-04-22 12:37] VITALS: BP 117/77; PULSE 104; O2SAT 99
--- NOTE | 2022-04-22 13:37 | PCM.DS ---
Discharge Summary Date of Admission: 04/20/22 17:54 Admitting Physician: JUDIT GAMEZ Primary Care Provider: KAVITA MEJIA Allergies Allergies No Known Drug Allergies Allergy (Verified 04/20/22 15:26) Hospital Summary - Hospital Course Hospital Course: Chief Complaint Diagnosis c/o diarrhea, weakness for 2 days Allergies Allergy/AdvReac Type Severity Reaction Status Date / Time No Known Drug Allergies Allergy Verified 04/20/22 15:26 Vital Signs (Last 24 hours) Temp Pulse Resp BP Pulse Ox 04/22/22 12:00 97.8 F 104 H 16 117/77 99 04/22/22 08:00 16 04/22/22 07:50 97.7 F 64 16 117/64 98 04/22/22 04:00 97.3 F 86 16 99/57 98 04/22/22 00:00 16 04/21/22 23:59 97.3 F 86 16 80/43 99 04/21/22 20:55 97.5 F 90 16 90/52 98 04/21/22 20:00 98.5 F 107 H 20 114/62 97 04/21/22 16:00 97.5 F 102 H 18 116/58 99 Home Medications Medication Instructions Recorded Confirmed Last Taken Type No Reportable Medications [No 04/20/22 04/20/22 Unknown History Reported Medications] Current Medications Generic Name Dose Route Start Last Admin Trade Name Freq PRN Reason Stop Dose Admin Acetaminophen 650 mg 04/20/22 18:00 Acetaminophen 325 Mg Tablet PO 05/20/22 17:59 Q4H PRN PRN PAIN AND/OR FEVER Potassium Chloride/Sodium Chloride 1,000 mls @ 100 mls/hr 04/20/22 18:00 04/22/22 02:31 Sodium Chloride 0.9% W/ 20 Meq Kcl/Liter IV 05/20/22 17:59 100 mls/hr .Q10H SIERRA Administration Levofloxacin/Dextrose 500 mg in 100 mls @ 100 mls/hr 04/21/22 10:00 04/22/22 09:12 Levofloxacin 500mg/100ml D5w IV 05/21/22 09:59 100 mls/hr Q24H10 SIERRA Administration Metronidazole 500 mg in 100 mls @ 200 mls/hr 04/20/22 18:00 04/22/22 12:49 Flagyl 500 Mg Ivpb IV 05/20/22 17:59 200 mls/hr Q6HT SIERRA Administration Ondansetron HCl 4 mg 04/20/22 21:50 Ondansetron Hcl 4 Mg/2 Ml Vial IV 05/20/22 21:49 Q6H PRN PRN NAUSEA/VOMITING Pantoprazole Sodium 40 mg 04/21/22 10:00 04/22/22 09:12 Pantoprazole 40 Mg Vial IV 05/21/22 09:59 40 mg Q24H10 SIERRA Administration Discontinued Medications Generic Name Dose Route Start Last Admin Trade Name Freq PRN Reason Stop Dose Admin Acetaminophen 975 mg 04/20/22 15:43 04/20/22 15:55 Acetaminophen 325 Mg Tablet PO 04/20/22 15:44 975 mg STAT STA Administration Acetaminophen Confirm 04/20/22 15:54 Acetaminophen 325 Mg Tablet Administered 04/20/22 15:55 Dose 975 mg .ROUTE .STK-MED ONE Albuterol/Ipratropium 3 ml 04/20/22 18:00 Ipratropium/Albuterol Sulfate 3 Ml Ampul.Neb IH 05/20/22 17:59 Q4HPRN PRN SHORTNESS OF BREATH/WHEEZING Methylprednisolone Sodium 0 mg 04/20/22 17:02 04/20/22 17:26 Succinate 125 mg/ Sterile IV 04/20/22 17:03 125 mg Water 2 ml STAT ONE Administration Sodium Chloride 1,000 mls @ 999 mls/hr 04/20/22 15:43 04/20/22 17:07 Sodium Chloride 0.9% 1000 Ml IV 04/20/22 16:43 Infused .Q1H1M STA Infusion Sodium Chloride Confirm 04/20/22 15:54 Sodium Chloride 0.9% 1000 Ml Administered 04/20/22 15:55 Dose 1,000 mls @ ud .ROUTE .STK-MED ONE Potassium Chloride 20 meq in 100 mls @ 50 mls/hr 04/20/22 16:30 04/20/22 18:23 Potassium Chloride 20 Meq In Water 100ml IV 04/20/22 20:29 50 mls/hr Q2H SIERRA Administration Levofloxacin/Dextrose 750 mg in 150 mls @ 100 mls/hr 04/20/22 17:21 04/20/22 19:02 Levofloxacin 750mg/150ml D5w IV 04/20/22 18:50 Not Given STAT STA Metronidazole 500 mg in 100 mls @ 200 mls/hr 04/20/22 17:21 04/20/22 17:27 Flagyl 500 Mg Ivpb IV 04/20/22 17:50 200 mls/hr STAT STA 200 mls/hr Administration Sodium Chloride 1,000 mls @ 100 mls/hr 04/20/22 17:30 04/20/22 17:26 Sodium Chloride 0.9% 1000 Ml IV 05/20/22 17:29 100 mls/hr .Q10H SIERRA Administration Metronidazole Confirm 04/20/22 17:24 Flagyl 500 Mg Ivpb Administered 04/20/22 17:25 Dose 500 mg in 100 mls @ ud IV .STK-MED ONE Magnesium Sulfate/Dextrose 100 mls @ 200 mls/hr 04/20/22 17:29 04/20/22 20:15 Magnesium 1 Gm / 100 Ml D5w IV 04/20/22 17:58 200 mls/hr STAT ONE Administration Potassium Chloride Confirm 04/20/22 16:31 Potassium Chloride 20 Meq In Water 100ml Administered 04/20/22 16:32 Dose 100 mls @ ud IV .STK-MED ONE Sodium Chloride Confirm 04/20/22 17:24 Sodium Chloride 0.9% 1000 Ml Administered 04/20/22 17:25 Dose 1,000 mls @ ud .ROUTE .STK-MED ONE Levofloxacin/Dextrose Confirm 04/20/22 18:04 Levofloxacin 500mg/100ml D5w Administered 04/20/22 18:05 Dose 500 mg in 100 mls @ ud IV .STK-MED ONE Potassium Chloride Confirm 04/20/22 18:06 Potassium Chloride 20 Meq In Water 100ml Administered 04/20/22 18:07 Dose 100 mls @ ud IV .STK-MED ONE Potassium Chloride/Sodium Chloride Confirm 04/20/22 20:05 Sodium Chloride 0.45% W/ 20 Meq Kcl Administered 04/20/22 20:06 Dose 1,000 mls @ ud IV .STK-MED ONE Magnesium Sulfate/Dextrose Confirm 04/20/22 20:05 Magnesium 1 Gm / 100 Ml D5w Administered 04/20/22 20:06 Dose 100 mls @ ud IV .STK-MED ONE Methylprednisolone Sodium Succinate Confirm 04/20/22 17:24 Methylprednis Sod Succ 125 Mg/2 Ml Vial Administered 04/20/22 17:25 Dose 125 mg .ROUTE .STK-MED ONE Potassium Chloride 40 meq 04/20/22 16:29 04/20/22 16:33 Potassium Chloride Tab 10 Meq Tab PO 04/20/22 16:30 40 meq STAT ONE Administration Potassium Chloride Confirm 04/20/22 16:31 Potassium Chloride Tab 10 Meq Tab Administered 04/20/22 16:32 Dose 40 meq PO .STK-MED ONE Sterile Water Confirm 04/20/22 17:23 Water For Injection,Sterile 10 Ml Vial Administered 04/20/22 17:24 Dose 10 ml IJ .STK-MED ONE Intake & Output (Last 24 hours) 04/20/22 04/21/22 04/22/22 04/23/22 11:59 11:59 11:59 11:59 Intake Total 2390 4409 Output Total 900 Balance 2390 3509 Weight 90.4 kg Microbiology Results (Last 24 hours) 04/20/22 15:53 Urine, Void Urine Culture - Final MIXED JEN; 3 OR MORE TYPES. NO PREDOMINANT ORGANISM. NO FURTHER WORKUP. PLEASE RESUBMIT IF CLINICALLY INDICATED. Orders (Last 24 hours) Category Date Time Status Discharge Routine Discharge 04/22/22 12:31 Ordered - Vitals & Intake/Output Vital Signs: Vital Signs Temperature 97.8 F 04/22/22 12:00 Pulse Rate 104 H 04/22/22 12:00 Respiratory Rate 16 04/22/22 12:00 Blood Pressure 117/77 04/22/22 12:00 O2 Sat by Pulse Oximetry 99 04/22/22 12:00 Intake & Output: Intake & Output 04/20/22 04/21/22 04/22/22 04/23/22 11:59 11:59 11:59 11:59 Intake Total 2390 4409 Output Total 900 Balance 2390 3509 Weight 90.4 kg - Lab Result Diagrams: 04/21/22 05:50 04/21/22 05:50 Micro Results-Entire Visit: Microbiology 04/20/22 15:53 Urine Culture - Final Urine, Void MIXED JEN; 3 OR MORE TYPES. NO PREDOMINANT ORGANISM. NO FURTHER WORKUP. PLEASE RESUBMIT IF CLINICALLY INDICATED. - Radiology Exams Ordered Rad Exams-Entire Visit: Radiology Procedures Category Date Time Status ABDOMEN AND PELVIS W/0 CONTRAS [CT] Stat Exams 04/20/22 15:43 Completed - Procedures and Test Procedures and Tests throughout Hospitalization: Therapy Orders & Screens 04/20/22 20:26 Respiratory Therapy Assessment DAILY Comment: Diagnosis: enterocolitis, hypokalemia Discharge Exam General Appearance: no apparent distress, alert Neurologic Exam: alert, oriented x 3, cooperative, normal mood/affect, nml cerebellar function, sensation nml, No motor deficits Eye Exam: PERRL, EOMI, eyes nml inspection Ears, Nose, Throat Exam: normal ENT inspection, pharynx normal, moist mucous membranes Neck Exam: normal inspection, non-tender, supple, full range of motion Respiratory Exam: normal breath sounds, lungs clear, No respiratory distress Cardiovascular Exam: regular rate/rhythm, normal heart sounds Gastrointestinal/Abdomen Exam: soft, No tenderness, No mass Pelvic Exam: deferred Rectal Exam: deferred Back Exam: normal inspection, normal range of motion, No CVA tenderness, No vertebral tenderness Extremity Exam: normal inspection, normal range of motion Skin Exam: normal color, warm, dry Final Diagnosis/Problem List - Final Discharge Diagnosis/Problem (1) Enterocolitis Current Visit: Yes Status: Resolved Code(s): K52.9 - NONINFECTIVE GASTROENTERITIS AND COLITIS, UNSPECIFIED (2) Hypokalemia Current Visit: Yes Status: Resolved Code(s): E87.6 - HYPOKALEMIA (3) Exacerbation of Crohn's disease Current Visit: Yes Status: Chronic Code(s): K50.90 - CROHN'S DISEASE, UNSPECIFIED, WITHOUT COMPLICATIONS (4) Asthma Current Visit: Yes Status: Chronic Code(s): J45.909 - UNSPECIFIED ASTHMA, UNCOMPLICATED - Discharge Discharge Date: 04/22/22 Disposition: Home, Self-Care Condition: Stable Prescriptions: No Action No Reportable Medications [No Reported Medications] Instructions: Crohn's Disease (DC) Follow up with: KAVITA MEJIA NP [Primary Care Provider] - Forms: Discharge Instructions
== END 2022-04-22 14:06 | disposition home or self-care (01) ==
LOC: ED 15:17 → MED SURG 17:54
PROVIDERS: ADMIT Family Medicine; ATTEND Family Medicine
DX: K52.9 Noninfective gastroenteritis and colitis, unspecified (principal); E87.6 Hypokalemia; K50.90 Crohn's disease, unspecified, without complications; J45.909 Unspecified asthma, uncomplicated; Z79.899 Other long term (current) drug therapy; Z20.828 Contact with and (suspected) exposure to other viral communicable diseases
CPT/HCPCS: 0241U; 36000; 36415; 74176; 80053; 81015; 81025; 83690; 83735; 84132; 84145; 85025; 87086; 96360; 96375; 99285; 93268; 96365; 96366; 96367; 96374; J1956; J2930; J3475; J3480; A9270-GY; G0378

== ENCOUNTER 2023-11-28 10:37 | Day surgery (SDC) | payer OTHER ==
--- NOTE | 2023-11-27 11:33 | HP ---
DATE OF SURGERY: 11/28/2023 HISTORY OF PRESENT ILLNESS: The patient is a 23-year-old female presented with complaints of anemia and some diarrhea. The patient thinks that her mother did have Crohn's disease. It is not clear but the patient may have Crohn's herself and started on biologic treatment it looks like. She still has some cramping but better. The medicine seems to be helping though she is complaining of a lot of diarrhea. PAST MEDICAL HISTORY: Crohn's disease. PAST SURGICAL HISTORY: Colonoscopy x3. EGD. [place] tooth. ALLERGIES: NKDA. MEDICATIONS: Entyvio. FAMILY HISTORY: Crohn's disease, hypertension. SOCIAL HISTORY: No smoking. REVIEW OF SYSTEMS: CONSTITUTIONAL: Denies fever or chills. CHEST: Denies shortness of breath. CVS: Denies chest pain. ABDOMEN: Reports abdominal pain. PHYSICAL EXAMINATION: GENERAL: No acute distress. CHEST: Nonlabored. No shortness of breath. CVS: Regular rate and rhythm. ABDOMEN: Soft. IMPRESSION: History of Crohn's disease and diarrhea. PLAN: Colonoscopy with Dr. Kameron Crawley. As dictated by Alyssa Norris NP.
[2023-11-28 12:28] LABS: HCG URINE TEST NEGATIVE (NEGATIVE)
[2023-11-28] MEDS: Lactated Ringers 1,000 ML IV SCH (12:30)
[2023-11-28 12:38] VITALS: RESP 18
[2023-11-28] MEDS ORDERED: Versed 2 MG/2 ML Injection ONE (13:26)
[2023-11-28] MEDS ORDERED: DIPRIVAN 200 MG/20 ML IV ONE ×2 (13:26→13:42)
[2023-11-28] MEDS ORDERED: Xylocaine-Mpf 2% 5 Ml Vial ONE (13:32)
[2023-11-28] MEDS ORDERED: SUBLIMAZE 100 MCG/2 ML ONE (13:39)
[2023-11-28] MEDS ORDERED: GlucaGen 1 MG ONE (13:41)
[2023-11-28 14:36] VITALS: PULSE 90; TEMP 97.2; O2SAT 100
[2023-11-28 14:46] VITALS: BP 113/66
[2023-11-28 15:23] LABS: 027 TOX PROD PRESUMPTIVE NEGATIVE (NEGATIVE)
[2023-11-28 16:54] LABS: TOXIGENIC C. DIFF ORG POSITIVE (NEGATIVE)
--- NOTE | 2023-11-29 08:02 | OP ---
SURGERY DATE/TIME: 11/28/2023 8092 PREOPERATIVE DIAGNOSIS: History of Crohn's, presents with some increased symptoms. POSTOPERATIVE DIAGNOSIS: Mild diffuse colitis. PROCEDURES: 1) Colonoscopy complete to cecum. 2) Cold biopsy of the rectum. 3) Stool was sent for Clostridium difficile, ova and parasite, stool pathogen. At this time, I am worried that the Clostridium difficile is positive. SURGEON: Kameron Crawley M.D. ANESTHESIA: MAC. COMPLICATIONS: None. CONDITION: Stable. DESCRIPTION OF PROCEDURE: Patient had been taken to endoscopy. Left lateral decubitus position. There was some perianal irritation consistent with described disorder. Her rectum was actually fairly innocent. Sigmoid fairly innocent. The colon a little spastic. Glucagon was given. Scope advanced over to the cecum. The ileocecal valve was prominent. There really was just a light colitis here. It is not overwhelming. It was sent for Clostridium difficile, ova and parasite, stool pathogen and subsequently she was positive for Clostridium difficile. On circumferential withdrawal, there was nothing else noted. The patient tolerated the procedure satisfactorily. We will get a hold of her with the Clostridium difficile positive sample.
== END 2023-11-28 14:38 | disposition home or self-care (01) ==
LOC: SDC 10:37
PROVIDERS: ATTEND Surgery
DX: Z87.19 Personal history of other diseases of the digestive system (principal); K52.9 Noninfective gastroenteritis and colitis, unspecified
CPT/HCPCS: 81025; 87045; 87046; 87177; 87209; 87328; 87329; 87427; 87493; J1610; J2250; J2704; J3010

== ENCOUNTER 2024-07-29 10:41 | Emergency (ER) | payer OTHER ==
[2024-07-29] MEDS ORDERED: Sodium Chloride 0.9% 1000 ML 1,000 ML ONE ×2 (11:16→14:07)
[2024-07-29] MEDS: Sodium Chloride 0.9% 1000 ML 1,000 ML IV STA (11:17)
[2024-07-29 11:34] LABS: Absolute Neutrophil Ct (ANC) 10.83 x10^3/uL (1.56-6.13); BASOPHIL % 0.3 % (0.1-1.2); Basophil (Absolute #) 0.04 x10^3/uL (0.01-0.08); Eosinophil (Absolute #) 0.13 x10^3/uL (0.04-0.36); Hematocrit 31.3 % (34.1-44.9); Hemoglobin 9.6 g/dL (11.2-15.7); IMMATURE GRAN # 0.11 x10^3u/L (0.001-0.031); IMMATURE GRAN % 0.8 % (0.001-0.429); Lymphocyte (Absolute #) 1.37 x10^3/uL (1.18-3.74); Lymphocytes % 10.2 % (19.3-51.7); Mean Cell Volume 67.2 fL (79.4-94.8); Mean Corpuscular Hemoglobin 20.6 pg (25.6-32.2); Mean Corpuscular Hgb Concent. 30.7 g/dL (32.2-35.5); Mean Platelet Volume 9.7 fL (9.4-12.3); Monocyte (Absolute #) 0.95 x10^3/uL (0.24-0.86); Monocytes % 7.1 % (4.7-12.5); Neutrophil % 80.6 % (34.0-71.1); Platelet Count 694 x10^3/uL (182-369); Red Blood Count 4.66 x10^6/uL (3.93-5.22); Red Cell Distribution Width 15.4 % (11.7-14.4); White Blood Count 13.4 x10^3/uL (3.98-10.04)
[2024-07-29 11:54] LABS: Appearance Cloudy (Clear); Bacteria None Seen /HPF (None Seen); Bilirubin Small (Negative); Blood Moderate (Negative); Epithelial Cells Moderate /HPF (None Seen); Glucose, Urine Negative (Negative); Ketones Trace (Negative); Leukocyte Esterase Negative (Negative); Nitrite Negative (Negative); Ph 5.5 (4.6-8.0); Protein,Urine Dip 30 (Negative); Specific Gravity >=1.030 (1.005-1.030)
--- NOTE | 2024-07-29 11:54 | ERPHSYRPT ---
- History of Present Illness Time Seen by Provider: 07/29/24 10:43 Historian: patient Exam Limitations: no limitations Patient Subjective Stated Complaint: Pt states "I just got over a treatment for c diff and I am not sure if that is coming back or if I have a crohn's flair up. My belly is hurting and I have diarrhea and I have a fever." Triage Nursing Assessment: Pt presented alert and oriented X 3, skin pwd. Pt ambulates with an upright steady gait, able to speak in clear full sentences. Pt resting comfortably on the bed. Physician History: 23-year-old female with history of Crohn's disease, recent C. difficile, completed vancomycin and has negative C. difficile test presented in the ER with complaining of right sided increasing pain. Patient has chronic diarrhea which is not any worse than usual. Patient pain is worsening which she thinks has Crohn's flareup. She called her GI and was given a prescription of budesonide steroid which she has not started taking. Reports subjective feeling of fever a nd chills along with generalized weakness. Also reports having increased food sensitivities and she cannot eat a whole lot of food as abdominal pain gets worse as soon as she starts eating. Allergies/Adverse Reactions: No Known Drug Allergies Allergy (Verified 05/25/24 07:07) Home Medications: Etonogestrel [Nexplanon] 68 mg SQ UD 07/04/22 [History] Vedolizumab [Entyvio] 300 mg IV UD 11/14/23 [History] Hx Tetanus, Diphtheria Vaccination/Date Given: Yes Hx Influenza Vaccination/Date Given: Yes Hx Pneumococcal Vaccination/Date Given: No Immunizations Up to Date: No Travel Risk - International Travel Have you traveled outside of the country in past 3 weeks: No - Emerging Infectious Disease Are you exhibiting symptoms associated with any current EIDs: Yes Symptoms: Abdominal Pain - Review of Systems Constitutional: Fever Eyes: No Symptoms Ears, Nose, & Throat: No Symptoms Respiratory: No Symptoms Cardiac: No Symptoms Abdominal/Gastrointestinal: Abdominal Pain, Diarrhea Genitourinary Symptoms: No Symptoms Musculoskeletal: No Symptoms Skin: No Symptoms Neurological: No Symptoms Endocrine: No Symptoms Hematologic/Lymphatic: No Symptoms - Past Medical History Pertinent Past Medical History: Yes Neurological History: No Pertinent History ENT History: No Pertinent History Cardiac History: No Pertinent History Respiratory History: Asthma, Other Endocrine Medical History: No Pertinent History Musculoskeletal History: No Pertinent History GI Medical History: Crohns Disease, Ulcer History: No Pertinent History Psycho-Social History: Anxiety Female Reproductive Disorders: No Pertinent History Other Medical History: COVID-19, childhood asthma, tubes in ears, hx of c-diff - Past Surgical History Past Surgical History: Yes Neuro Surgical History: No Pertinent History Cardiac: No Pertinent History Respiratory: No Pertinent History Gastrointestinal: Other Genitourinary: No Pertinent History Musculoskeletal: No Pertinent History Female Surgical History: No Pertinent History Other Surgical History: COLONOSCOPY - ADENOIDECTMY. ear tubes - Female History Hx Last Menstrual Period: 10/26/2024 Hx Now: No - Social History Smoking Status: Never smoker Exposure to second hand smoke: Yes Drug Use: none Patient Lives Alone: No - Social Determinants of Health Will the patient participate in the screening: Declined to provide - Nursing Vital Signs Nursing Vital Signs: Initial Vital Signs Temperature 99.0 F 07/29/24 10:51 Pulse Rate 103 H 07/29/24 10:51 Respiratory Rate 18 07/29/24 10:51 Blood Pressure 150/91 07/29/24 10:51 O2 Sat by Pulse Oximetry 99 07/29/24 10:51 Pain Scale Pain Intensity 4 - Physical Exam General Appearance: no apparent distress Eye Exam: PERRL/EOMI Ears, Nose, Throat Exam: normal ENT inspection Neck Exam: normal inspection, full range of motion Respiratory Exam: normal breath sounds, lungs clear Cardiovascular Exam: regular rate/rhythm, normal heart sounds Gastrointestinal/Abdomen Exam: soft, normal bowel sounds, tenderness (Right side) Extremity Exam: normal inspection, normal range of motion Neurologic Exam: alert, oriented x 3, cooperative Skin Exam: normal color SpO2 Interpretation: normal SpO2: 99 O2 Delivery: Room Air Ordered Tests: Active Orders 24 hr Category Date Time Status IV Insertion STAT Care 07/29/24 11:00 Active Telemetry q4h Care 07/29/24 13:22 Completed ABDOMEN AND PELVIS W/0 CONTRAS [CT] Stat Exams 07/29/24 11:01 Completed CBC W DIFF Stat Lab 07/29/24 11:31 Completed CMP Stat Lab 07/29/24 11:31 Completed CULTURE,URINE Stat Lab 07/29/24 11:10 Received HCG QUALITATIVE, SERUM Stat Lab 07/29/24 11:31 Completed Lactic Acid Stat Lab 07/29/24 11:45 Completed MAG [MAGNESIUM] Stat Lab 07/29/24 11:51 Completed UA W/RFX UR CULTURE Stat Lab 07/29/24 11:10 Completed Medication Summary Generic Name Dose Route Start Last Admin Trade Name Nigel PRN Reason Stop Dose Admin Potassium Chloride 20 meq in 100 mls @ 50 mls/hr 07/29/24 13:30 07/29/24 16:27 Potassium Chloride 20 Meq In Water 100ml IV 07/29/24 17:29 50 mls/hr Q2H [facility]ERRA Administration Sodium Chloride 1,000 mls @ 125 mls/hr 07/29/24 14:30 07/29/24 14:32 Sodium Chloride 0.9% 1000 Ml IV 08/28/24 14:29 125 mls/hr .Q8H [facility] Administration Discontinued Medications Generic Name Dose Route Start Last Admin Trade Name Nigel PRN Reason Stop Dose Admin Acetaminophen 1,000 mg 07/29/24 16:17 07/29/24 16:24 Acetaminophen 500 Mg Tablet PO 07/29/24 16:18 1,000 mg STAT STA Administration Acetaminophen Confirm 07/29/24 16:18 Acetaminophen 500 Mg Tablet Administered 07/29/24 16:19 Dose 1,000 mg .ROUTE .STK-MED ONE Fentanyl Citrate 50 mcg 07/29/24 15:51 07/29/24 16:22 Fentanyl Citrate 100 Mcg/2 Ml* Vial IV 07/29/24 15:52 50 mcg STAT ONE Administration Fentanyl Citrate Confirm 07/29/24 16:17 Fentanyl Citrate 100 Mcg/2 Ml* Vial Administered 07/29/24 16:18 Dose 100 mcg .ROUTE .STK-MED ONE Sodium Chloride 1,000 mls @ 999 mls/hr 07/29/24 11:00 07/29/24 12:41 Sodium Chloride 0.9% 1000 Ml IV 07/29/24 12:00 Infused .Q1H1M STA Infusion Sodium Chloride Confirm 07/29/24 11:16 Sodium Chloride 0.9% 1000 Ml Administered 07/29/24 11:17 Dose 1,000 mls @ ud .ROUTE .STK-MED ONE Piperacillin Sod/Tazobactam 100 mls @ 200 mls/hr 07/29/24 13:21 07/29/24 13:51 Sod 3.375 gm/ Sodium Chloride IV 07/29/24 13:50 200 mls/hr STAT ONE Administration Sodium Chloride Confirm 07/29/24 13:51 Sodium Chloride 100ml Mini-Bag Plus Administered 07/29/24 13:52 Dose 100 mls @ ud IV .STK-MED ONE Sodium Chloride Confirm 07/29/24 14:07 Sodium Chloride 0.9% 1000 Ml Administered 07/29/24 14:08 Dose 1,000 mls @ ud .ROUTE .STK-MED ONE Ondansetron HCl 4 mg 07/29/24 15:51 07/29/24 16:22 Ondansetron Hcl 4 Mg/2 Ml Vial IV 07/29/24 15:52 4 mg STAT ONE Administration Ondansetron HCl Confirm 07/29/24 16:17 Ondansetron Hcl 4 Mg/2 Ml Vial Administered 07/29/24 16:18 Dose 4 mg .ROUTE .STK-MED ONE Piperacillin Sod/Tazobactam Sod Confirm 07/29/24 13:50 Piperacillin/Tazobactam Sodium 3.375 Gm Vial Administered 07/29/24 13:51 Dose 3.375 gm IV .STK-MED ONE Potassium Chloride 40 meq 07/29/24 12:15 07/29/24 12:29 Potassium Chloride Tab 10 Meq Tab PO 07/29/24 12:16 40 meq STAT ONE Administration Potassium Chloride Confirm 07/29/24 12:28 Potassium Chloride Tab 10 Meq Tab Administered 07/29/24 12:29 Dose 40 meq .ROUTE .STK-MED ONE Lab/Rad Data: Laboratory Result Diagrams 07/29/24 11:31 07/29/24 11:31 Laboratory Results 07/29/24 07/29/24 07/29/24 Range/Units 11:51 11:45 11:31 WBC (3.98-10.04) x10^3/uL RBC (3.93-5.22) x10^6/uL Hgb (11.2-15.7) g/dL Hct (34.1-44.9) % MCV (79.4-94.8) fL MCH (25.6-32.2) pg MCHC (32.2-35.5) g/dL RDW (11.7-14.4) % Plt Count (182-369) x10^3/uL MPV (9.4-12.3) fL Gran % (34.0-71.1) % Immature Gran % (Auto) (0.001-0.429) % Nucleat RBC Rel Count (0.00-0.2) % Eos # (Auto) (0.04-0.36) x10^3/uL Immature Gran # (Auto) (0.001-0.031) x10^3u/L Absolute Lymphs (auto) (1.18-3.74) x10^3/uL Absolute Monos (auto) (0.24-0.86) x10^3/uL Absolute Nucleated RBC (0.00-0.012) x10^3u/L Lymphocytes % (19.3-51.7) % Monocytes % (4.7-12.5) % Eosinophils % (0.7-5.8) % Basophils % (0.1-1.2) % Absolute Granulocytes (1.56-6.13) x10^3/uL Basophils # (0.01-0.08) x10^3/uL Sodium (135-145) mmol/L Potassium (3.5-5.1) mmol/L Chloride (98-107) mmol/L Carbon Dioxide (22-30) mmol/L Anion Gap (5-15) MEQ/L BUN (7-17) mg/dL Creatinine (0.52-1.04) mg/dL Estimated GFR ML/MIN Glucose (74-106) mg/dL Lactic Acid 1.1 (0.4-2.0) Calcium (8.4-10.2) mg/dL Magnesium 1.8 (1.6-2.3) mg/dL Total Bilirubin (0.2-1.3) mg/dL AST (14-36) U/L ALT (0-35) U/L Alkaline Phosphatase (38-126) U/L Serum Total Protein (6.3-8.2) g/dL Albumin (3.5-5.0) g/dL Serum HCG, Qual NEGATIVE (NEGATIVE) Urine Color (Yellow) Urine Appearance (Clear) Urine pH (4.6-8.0) Ur Specific [place] (1.005-1.030) Urine Protein (Negative) Urine Glucose (UA) (Negative) mg/dL Urine Ketones (Negative) Urine Blood (Negative) Urine Nitrite (Negative) Urine Bilirubin (Negative) Urine Urobilinogen (0.2) mg/dL Ur Leukocyte Esterase (Negative) U Hyaline Cast (Auto) (0-2) /LPF Urine Microscopic RBC (0-5) /HPF Urine Microscopic WBC (0-5) /HPF Ur Epithelial Cells (None Seen) /HPF Urine Bacteria (None Seen) /HPF Urine Culture Reflexed (NO) 07/29/24 07/29/24 07/29/24 Range/Units 11:31 11:31 11:10 WBC 13.4 H (3.98-10.04) x10^3/uL RBC 4.66 (3.93-5.22) x10^6/uL Hgb 9.6 L (11.2-15.7) g/dL Hct 31.3 L (34.1-44.9) % MCV 67.2 L (79.4-94.8) fL MCH 20.6 L (25.6-32.2) pg MCHC 30.7 L (32.2-35.5) g/dL RDW 15.4 H (11.7-14.4) % Plt Count 694 H (182-369) x10^3/uL MPV 9.7 (9.4-12.3) fL Gran % 80.6 H (34.0-71.1) % Immature Gran % (Auto) 0.8 H (0.001-0.429) % Nucleat RBC Rel Count 0.0 (0.00-0.2) % Eos # (Auto) 0.13 (0.04-0.36) x10^3/uL Immature Gran # (Auto) 0.11 H (0.001-0.031) x10^3u/L Absolute Lymphs (auto) 1.37 (1.18-3.74) x10^3/uL Absolute Monos (auto) 0.95 H (0.24-0.86) x10^3/uL Absolute Nucleated RBC 0.00 (0.00-0.012) x10^3u/L Lymphocytes % 10.2 L (19.3-51.7) % Monocytes % 7.1 (4.7-12.5) % Eosinophils % 1.0 (0.7-5.8) % Basophils % 0.3 (0.1-1.2) % Absolute Granulocytes 10.83 H (1.56-6.13) x10^3/uL Basophils # 0.04 (0.01-0.08) x10^3/uL Sodium 136 (135-145) mmol/L Potassium 3.0 L* (3.5-5.1) mmol/L Chloride 102 (98-107) mmol/L Carbon Dioxide 21 L (22-30) mmol/L Anion Gap 16.7 H (5-15) MEQ/L BUN 6 L (7-17) mg/dL Creatinine 0.83 (0.52-1.04) mg/dL Estimated GFR 100.3 ML/MIN Glucose 102 (74-106) mg/dL Lactic Acid (0.4-2.0) Calcium 9.1 (8.4-10.2) mg/dL Magnesium (1.6-2.3) mg/dL Total Bilirubin 0.80 (0.2-1.3) mg/dL AST 20 (14-36) U/L ALT 12 (0-35) U/L Alkaline Phosphatase 85 (38-126) U/L Serum Total Protein 8.1 (6.3-8.2) g/dL Albumin 4.3 (3.5-5.0) g/dL Serum HCG, Qual (NEGATIVE) Urine Color Dark Yellow A (Yellow) Urine Appearance Cloudy A (Clear) Urine pH 5.5 (4.6-8.0) Ur Specific [place] >=1.030 A (1.005-1.030) Urine Protein 30 (Negative) Urine Glucose (UA) Negative (Negative) mg/dL Urine Ketones Trace A (Negative) Urine Blood Moderate A (Negative) Urine Nitrite Negative (Negative) Urine Bilirubin Small A (Negative) Urine Urobilinogen 1.0 A (0.2) mg/dL Ur Leukocyte Esterase Negative (Negative) U Hyaline Cast (Auto) 3-5 A (0-2) /LPF Urine Microscopic RBC 11-20 A (0-5) /HPF Urine Microscopic WBC 6-10 A (0-5) /HPF Ur Epithelial Cells Moderate A (None Seen) /HPF Urine Bacteria None Seen (None Seen) /HPF Urine Culture Reflexed YES (NO) - Progress Progress: re-examined Progress Note: 07/29/24 15:46 23-year-old is evaluated in the ER for right-sided abdominal pain in the presence of Crohn's disease and diarrhea. She is given fluids and symptomatic treatment, on reevaluation she is feeling better. Workup showed white count of 13, chemistries fairly unremarkable. CT finding consistent with acute appendicitis and circumferential thickening of terminal ileum. Will continue with fluids and given a dose of Zosyn. Discussed with Dr. Deal, recommended transfer patient to facility with GI services along with general surgery which are not available here at [facility]. 07/29/24 17:[address] Carrera at [facility], reviewed history, workup and agreed with transfer. Discussed the results of workup with patient and plan of transfer which she understands and agrees. Discussed with Dr.: Other Will see patient in: ED Counseled pt/family regarding: lab results, diagnosis, rad results Medical Desision Making - Discussion of managment Care discussed with:: specialist Reviewed:: Test results Agreed on:: Treatment plan Will see patient: in ED - Diagnostic Testing Diagnostic test were ordered, analyzed, and reviewed by me: Yes Radiological Interpretation: Reviewed by me - Risk of complications The pt has a mod risk of morbidity or mortality based on: Need for prescription drug management, Need for major surgery in otherwise healthy patient The pt has a high risk of morbidity or mortality based on: Decision regarding hospitilization or escalation of hosp level of care - Departure Departure Disposition: Transfer Clinical Impression: Acute appendicitis, Crohn disease Condition: Stable Critical Care Time: No Referrals: KAVITA MEJIA, [employer] MANAGER [Primary Care Provider] - Follow up/PCP as directed
[2024-07-29 11:56] LABS: HCG SERUM TEST NEGATIVE (NEGATIVE)
[2024-07-29 11:57] LABS: ALBUMIN 4.3 g/dL (3.5-5.0); ANION GAP 16.7 MEQ/L (5-15); BILIRUBIN,TOTAL 0.8 mg/dL (0.2-1.3); Calcium 9.1 mg/dL (8.4-10.2); Creatinine 1 0.83 mg/dL (0.52-1.04); EST GLOMERULAR FILTRATION RATE 100.3 ML/MIN; Total Protein 8.1 g/dL (6.3-8.2)
[2024-07-29] MEDS ORDERED: Klor Con ONE (12:28)
[2024-07-29] MEDS: Klor Con PO ONE (12:29)
--- NOTE | 2024-07-29 13:06 | XRAY ---
Indication: Right lower quadrant pain. Multiple contiguous axial images obtained through the abdomen and pelvis without contrast. Comparison: April 20, 2022 Lung bases clear. Heart not enlarged. Noncontrasted stomach and bowel loops appear nonobstructed. New markedly enlarged and edematous appendix up to 2.5 cm with periappendiceal stranding favoring acute appendicitis. Small pelvic free fluid presumed reactive. No free air. Small adjacent centimeter/subcentimeter reactive mesenteric nodes. Also worsening circumferential wall thickening terminal ileum suggesting superimposed Crohn's disease. New tampon in situ. Remaining liver, gallbladder, pancreas, spleen, adrenal glands, kidneys, ureters, bladder, uterus, and aorta are unremarkable for noncontrast exam. Osseous structures intact. Impression: 1. New CT findings favoring acute appendicitis with small free fluid. No free air. 2. Worsening circumferential wall thickening terminal ileum favoring superimposed Crohn's disease. Comment: Telephone report was given to ordering clinician Dr. Sims at 1258 hrs. on July 29, 2024.
[2024-07-29] MEDS ORDERED: PIPERACILLIN/TAZOBACTAM IV ONE (13:50)
[2024-07-29] MEDS ORDERED: Sodium Chloride 100ML MINI-BAG PLUS 100 ML IV ONE (13:51)
[2024-07-29] MEDS: PIPERACILLIN/TAZOBACTAM 3.375 GM in Sodium Chloride 100ML MINI-BAG PLUS 100 ML IV ONE (13:51)
[2024-07-29] MEDS ORDERED: POTASSIUM CHLORIDE 20 mEq IN WATER 100ML 200 ML IV ONE (14:04)
[2024-07-29] MEDS: Sodium Chloride 0.9% 1000 ML 1,000 ML IV SCH (14:32)
[2024-07-29] MEDS: POTASSIUM CHLORIDE 20 mEq IN WATER 100ML 20 MEQ/100 ML BAG IV SCH (14:33)
[2024-07-29] MEDS ORDERED: SUBLIMAZE 100 MCG/2 ML ONE ×2 (16:17→21:05)
[2024-07-29] MEDS ORDERED: Zofran 4 MG/2 ML VIAL ONE ×2 (16:17→17:46)
[2024-07-29] MEDS ORDERED: TYLENOL EXTRA STRENGTH 500 MG ONE (16:18)
[2024-07-29] MEDS: SUBLIMAZE 100 MCG/2 ML IV ONE ×2 (16:22→21:05)
[2024-07-29] MEDS: Zofran 4 MG/2 ML VIAL IV ONE ×2 (16:22→17:47)
[2024-07-29] MEDS: TYLENOL EXTRA STRENGTH 500 MG PO STA (16:24)
[2024-07-29 17:44] VITALS: TEMP 103.1
[2024-07-29] MEDS ORDERED: TORAdol 30 mg Injection ONE (17:46)
[2024-07-29] MEDS: TORAdol 30 mg Injection IV ONE (17:46)
[2024-07-29 21:02] VITALS: BP 115/66; PULSE 125; RESP 26; O2SAT 98
== END 2024-07-29 21:12 | disposition short-term general hospital (02) ==
LOC: ED 10:41
DX: K35.80 Unspecified acute appendicitis (principal); K50.90 Crohn's disease, unspecified, without complications; R10.9 Unspecified abdominal pain; R53.1 Weakness; Z79.899 Other long term (current) drug therapy
CPT/HCPCS: 36415; 74176; 80053; 81001; 83605; 83735; 84703; 85025; 87086; 96360; 96374; 96375; 96376; 99285; J1885; J2405; J3010; J3480; A9270-GY

== ENCOUNTER 2024-10-06 08:39 | Emergency (ER) | payer OTHER, SELFPAY ==
[2024-10-06 08:50] VITALS: RESP 18; TEMP 100
--- NOTE | 2024-10-06 09:15 | ERPHSYRPT ---
- History of Present Illness Time Seen by Provider: 10/06/24 09:15 Exam Limitations: no limitations Patient Subjective Stated Complaint: PT states 'I have a UTI and I have antibiotics but I cannot take it because the thought of eating makes me want to vomit. I have had a fever and I just do not feel well." Triage Nursing Assessment: Pt presented alert and oriented X 3, skin pwd. Pt ambulates with an upright steady gait, able to speak in clear full sentences. Pt resting comfortably on the bed. Physician History: 24-year-old female no significant past medical history contributing to today's visit. Presents to emergency department for evaluation of a UTI. Patient was diagnosed with a UTI approximately 2 to 3 days ago. Patient was prescribed Macrobid. However patient states that she has not taken her Macrobid because she has been feeling unwell. Patient has been experiencing nausea vomiting and fever at home. No back pain. Patient tested negative for RSV flu COVID 2 days ago at [facility]. Symptoms are constant. Symptoms are moderate in intensity. No specific worsening or improving factors. Patient otherwise feels well. She denies pain. Patient voices no other complaints or concerns at this time. Portions of this note were created with voice recognition technology. There may be grammatical, spelling, punctuation or sound alike errors Timing/Duration: today Severity: moderate Modifying Factors: Improves With: nothing Associated Symptoms: denies symptoms Allergies/Adverse Reactions: No Known Drug Allergies Allergy (Verified 05/25/24 07:07) Home Medications: Etonogestrel [Nexplanon] 68 mg SQ UD 07/04/22 [History] Nitrofurantoin Macro 100 mg [Macrobid 100MG Capsule] 100 mg PO BID 10/06/24 [History] Hx Tetanus, Diphtheria Vaccination/Date Given: Yes Hx Influenza Vaccination/Date Given: Yes Hx Pneumococcal Vaccination/Date Given: No Immunizations Up to Date: No Travel Risk - International Travel Have you traveled outside of the country in past 3 weeks: No - Emerging Infectious Disease Are you exhibiting symptoms associated with any current EIDs: Yes Symptoms: Fever, Vomitting - Review of Systems Constitutional: No Symptoms, No Fever, No Chills Eyes: No Symptoms Ears, Nose, & Throat: No Symptoms Respiratory: No Symptoms, No Cough, No Dyspnea Cardiac: No Symptoms, No Chest Pain, No Edema, No Syncope Abdominal/Gastrointestinal: No Symptoms, No Abdominal Pain, No Nausea, No Vomiting, No Diarrhea Genitourinary Symptoms: No Symptoms, No Dysuria Musculoskeletal: No Symptoms, No Back Pain, No Neck Pain Skin: No Symptoms, No Rash Neurological: No Symptoms, No Dizziness, No Focal Weakness, No Sensory Changes Psychological: No Symptoms Endocrine: No Symptoms Hematologic/Lymphatic: No Symptoms Immunological/Allergic: No Symptoms All Other Systems: Reviewed and Negative - Past Medical History Pertinent Past Medical History: Yes Neurological History: No Pertinent History ENT History: No Pertinent History Cardiac History: No Pertinent History Respiratory History: Asthma, Other Endocrine Medical History: No Pertinent History Musculoskeletal History: No Pertinent History GI Medical History: Crohns Disease, Ulcer History: No Pertinent History Psycho-Social History: Anxiety Female Reproductive Disorders: No Pertinent History Other Medical History: COVID-19, childhood asthma, tubes in ears, hx of c-diff - Past Surgical History Past Surgical History: Yes Neuro Surgical History: No Pertinent History Cardiac: No Pertinent History Respiratory: No Pertinent History Gastrointestinal: Other Genitourinary: No Pertinent History Musculoskeletal: No Pertinent History Female Surgical History: No Pertinent History Other Surgical History: COLONOSCOPY - ADENOIDECTMY. ear tubes - Female History Hx Last Menstrual Period: 09/22/2024 Hx Now: No - Social History Smoking Status: Never smoker Exposure to second hand smoke: Yes Drug Use: none - Social Determinants of Health Will the patient participate in the screening: Declined to provide - Nursing Vital Signs Nursing Vital Signs: Initial Vital Signs Temperature 100.0 F 10/06/24 08:45 Pulse Rate 97 H 10/06/24 08:45 Respiratory Rate 18 10/06/24 08:45 Blood Pressure 113/84 10/06/24 08:45 O2 Sat by Pulse Oximetry 100 10/06/24 08:45 Pain Scale Pain Intensity 0 - Physical Exam General Appearance: no apparent distress, alert Eye Exam: PERRL/EOMI, eyes nml inspection Ears, Nose, Throat Exam: normal ENT inspection, moist mucous membranes Neck Exam: normal inspection, full range of motion Respiratory Exam: normal breath sounds, lungs clear, No respiratory distress Cardiovascular Exam: regular rate/rhythm, normal heart sounds, normal peripheral pulses Gastrointestinal/Abdomen Exam: soft, normal bowel sounds, other (No costovertebral angle tenderness), No tenderness, No mass Back Exam: normal inspection, normal range of motion, No CVA tenderness, No vertebral tenderness Extremity Exam: normal inspection, normal range of motion, pelvis stable Neurologic Exam: alert, oriented x 3, cooperative, normal mood/affect, nml cerebellar function, nml station & gait, sensation nml, No motor deficits Skin Exam: normal color, warm, dry, No rash Lymphatic Exam: No adenopathy SpO2 Interpretation: normal SpO2: 100 O2 Delivery: Room Air - Course Nursing assessment & vital signs reviewed: Yes Ordered Tests: Active Orders 24 hr Category Date Time Status IV Insertion STAT Care 10/06/24 09:12 Active CBC W DIFF Stat Lab 10/06/24 09:24 Completed CMP Stat Lab 10/06/24 09:24 Completed CULTURE,URINE Stat Lab 10/06/24 11:06 Received Manual Differential NC Stat Lab 10/06/24 09:24 Completed UA W/RFX UR CULTURE Stat Lab 10/06/24 11:06 Completed Medication Summary Generic Name Dose Route Start Last Admin Trade Name Freq PRN Reason Stop Dose Admin Magnesium Sulfate/Dextrose 100 mls @ 100 mls/hr 10/06/24 10:30 10/06/24 12:22 Magnesium 1 Gm / 100 Ml D5w IV 10/06/24 12:29 Infused Q1H [facility] Infusion Levofloxacin/Dextrose 500 mg in 100 mls @ 100 mls/hr 10/06/24 12:44 Levofloxacin 500mg/100ml D5w IV 10/06/24 13:43 STAT STA Discontinued Medications Generic Name Dose Route Start Last Admin Trade Name Freq PRN Reason Stop Dose Admin Acetaminophen 975 mg 10/06/24 09:15 10/06/24 09:20 Acetaminophen 325 Mg Tablet PO 10/06/24 09:16 975 mg STAT ONE Administration Acetaminophen Confirm 10/06/24 09:19 Acetaminophen 325 Mg Tablet Administered 10/06/24 09:20 Dose 975 mg .ROUTE .STK-MED ONE Sodium Chloride 1,000 mls @ 999 mls/hr 10/06/24 09:12 10/06/24 10:29 Sodium Chloride 0.9% 1000 Ml IV 10/06/24 10:12 Infused .Q1H1M STA Infusion Sodium Chloride Confirm 10/06/24 09:19 Sodium Chloride 0.9% 1000 Ml Administered 10/06/24 09:20 Dose 1,000 mls @ ud .ROUTE .STK-MED ONE Ondansetron HCl 4 mg 10/06/24 09:12 10/06/24 09:20 Ondansetron Hcl 4 Mg/2 Ml Vial IV 10/06/24 09:13 4 mg STAT ONE Administration Ondansetron HCl Confirm 10/06/24 09:19 Ondansetron Hcl 4 Mg/2 Ml Vial Administered 10/06/24 09:20 Dose 4 mg .ROUTE .STK-MED ONE Potassium Chloride 40 meq 10/06/24 10:19 10/06/24 10:24 Potassium Chloride Tab 10 Meq Tab PO 10/06/24 10:20 40 meq STAT ONE Administration Potassium Chloride Confirm 10/06/24 10:22 Potassium Chloride Tab 10 Meq Tab Administered 10/06/24 10:23 Dose 40 meq .ROUTE .STK-MED ONE Lab/Rad Data: Laboratory Result Diagrams 10/06/24 09:24 10/06/24 09:24 Laboratory Results 10/06/24 10/06/24 10/06/24 Range/Units 11:06 09:24 09:24 WBC 7.3 (3.98-10.04) x10^3/uL RBC 5.11 (3.93-5.22) x10^6/uL Hgb 10.6 L (11.2-15.7) g/dL Hct 33.7 L (34.1-44.9) % MCV 65.9 L (79.4-94.8) fL MCH 20.7 L (25.6-32.2) pg MCHC 31.5 L (32.2-35.5) g/dL RDW 16.8 H (11.7-14.4) % Plt Count 185 (182-369) x10^3/uL MPV 11.1 (9.4-12.3) fL Segmented Neutrophils 65 (34.0-71.1) % Lymphocytes (Manual) 33 (19.3-51.7) % Monocytes (Manual) 2 L (4.7-12.5) % Platelet Estimate NORMAL (NORMAL) RBC Morphology NORMAL Sodium 129 L (135-145) mmol/L Potassium 3.1 L (3.5-5.1) mmol/L Chloride 89 L (98-107) mmol/L Carbon Dioxide 27 (22-30) mmol/L Anion Gap 16.4 H (5-15) MEQ/L BUN 14 (7-17) mg/dL Creatinine 1.00 (0.52-1.04) mg/dL Estimated GFR 79.7 ML/MIN Glucose 93 (74-106) mg/dL Calcium 8.4 (8.4-10.2) mg/dL Total Bilirubin 0.90 (0.2-1.3) mg/dL AST 68 H (14-36) U/L ALT 27 (0-35) U/L Alkaline Phosphatase 222 H (38-126) U/L Serum Total Protein 7.9 (6.3-8.2) g/dL Albumin 4.1 (3.5-5.0) g/dL Urine Color Dark Yellow A (Yellow) Urine Appearance Turbid A (Clear) Urine pH 6.5 (4.6-8.0) Ur Specific [place] 1.020 (1.005-1.030) Urine Protein 30 (Negative) Urine Glucose (UA) Negative (Negative) mg/dL Urine Ketones 40 A (Negative) Urine Blood Large A (Negative) Urine Nitrite Positive A (Negative) Urine Bilirubin Negative (Negative) Urine Urobilinogen 1.0 A (0.2) mg/dL Ur Leukocyte Esterase Large A (Negative) U Hyaline Cast (Auto) NONE SEEN (0-2) /LPF Urine Microscopic RBC 3-5 (0-5) /HPF Urine Microscopic WBC >100 A (0-5) /HPF Ur Epithelial Cells Rare (None Seen) /HPF Urine Bacteria Many A (None Seen) /HPF Urine Culture Reflexed YES (NO) - Progress Progress: improved Progress Note: 24-year-old female presents to our ED for evaluation of nausea vomiting fever urinary symptomology. Workup reveals a urinary tract infection. Patient also has hypokalemia hyponatremia likely secondary to decreased p.o. over the past several days. IV fluids infused. Patient received supplemental magnesium and oral potassium. Patient feels much better and is tolerating p.o. Patient received a dose of Levaquin in our ED secondary to the UTI and fever. A prescription for Levaquin and Reglan forwarded to patient's pharmacy. Patient agrees to follow-up with her primary care doctor within 48 hours for reevaluation. Patient voices no other complaints or concerns at this time. Portions of this note were created with voice recognition technology. There may be grammatical, spelling, punctuation or sound alike errors Complexity of problem addressed is moderate acute complicated. No critical care time. Complexity of data reviewed and analyzed as moderate. Test ordered test reviewed results analyzed and correlated clinically with history and physical exam. Risk of complication and or risk of morbidity/mortality of patient management is moderate. A prescription for Levaquin and Reglan forwarded to patient's pharmacy. Patient agrees to follow-up with primary care doctor within 48 hours for reevaluation. Portions of this note were created with voice recognition technology. There may be grammatical, spelling, punctuation or sound alike errors 10/06/24 12:51 10/06/24 12:55 Counseled pt/family regarding: lab results, diagnosis, need for follow-up - Departure Departure Disposition: Home Clinical Impression: Microcytic anemia, Hyponatremia, Hypokalemia, Fever, Nausea and vomiting Condition: Stable Critical Care Time: No Referrals: KAVITA MEJIA, OPERATIONS MANAGER [Primary Care Provider] - Follow up/PCP as directed Additional Instructions: Discharge/Care Plan TERRIHSARRI VERDE was seen on 10/06/24 in the Emergency Room. The patient was counseled regarding Diagnosis,Lab results, Imaging studies, need for follow up and when to return to the Emergency Room. Prescriptions given: Discharge Note I have spoken with the patient and/or caregivers. I have explained the patient's condition, diagnosis and treatment plan based on the information available to me at this time. I have answered the patient's and/or caregiver's questions and addressed any concerns. The patient and/or caregivers have as good understanding of the patient's diagnosis, condition and treatment plan as can be expected at this point. The vital signs have been stable. The patient's condition is stable and appropriate for discharge from the emergency department. The patient will pursue further outpatient evaluation with the primary care physician or other designated or consulting physician as outlined in the discharge instructions. The patient and/or caregivers are agreeable to this plan of care and follow-up instructions have been explained in detail. The patient and/or caregivers have received these instruction. The patient/and or caregivers are aware that any significant change in condition or worsening of symptoms should prompt an immediate return to this or the closest emergency department or call 911. Prescriptions: Levofloxacin [Levaquin 500 MG Tablet] 500 mg PO DAILY #7 tablet Metoclopramide HCl 10 mg [Reglan 10 MG] 10 mg PO TID PRN 3 Days #9 tablet PRN Reason: Nausea/Vomiting
[2024-10-06] MEDS ORDERED: TYLENOL 325 MG ONE (09:19)
[2024-10-06] MEDS ORDERED: Zofran 4 MG/2 ML VIAL ONE (09:19)
[2024-10-06] MEDS ORDERED: Sodium Chloride 0.9% 1000 ML 1,000 ML ONE (09:19)
[2024-10-06] MEDS: Sodium Chloride 0.9% 1000 ML 1,000 ML IV STA (09:20)
[2024-10-06] MEDS: TYLENOL 325 MG PO ONE (09:20)
[2024-10-06] MEDS: Zofran 4 MG/2 ML VIAL IV ONE (09:20)
[2024-10-06 09:27] LABS: Hematocrit 33.7 % (34.1-44.9); Hemoglobin 10.6 g/dL (11.2-15.7); Mean Cell Volume 65.9 fL (79.4-94.8); Mean Corpuscular Hemoglobin 20.7 pg (25.6-32.2); Mean Corpuscular Hgb Concent. 31.5 g/dL (32.2-35.5); Platelet Count 185 x10^3/uL (182-369); Red Blood Count 5.11 x10^6/uL (3.93-5.22); Red Cell Distribution Width 16.8 % (11.7-14.4); White Blood Count 7.3 x10^3/uL (3.98-10.04)
[2024-10-06 09:31] LABS: Mean Platelet Volume 11.1 fL (9.4-12.3)
[2024-10-06 09:37] LABS: ALBUMIN 4.1 g/dL (3.5-5.0); ANION GAP 16.4 MEQ/L (5-15); BILIRUBIN,TOTAL 0.9 mg/dL (0.2-1.3); Calcium 8.4 mg/dL (8.4-10.2); EST GLOMERULAR FILTRATION RATE 79.7 ML/MIN; Potassium 3.1 mmol/L (3.5-5.1); Total Protein 7.9 g/dL (6.3-8.2)
[2024-10-06 10:09] LABS: Lymphocytes 33 % (19.3-51.7); Monocyte 2 % (4.7-12.5); Neutrophils 65 % (34.0-71.1); Platelet Estimate NORMAL (NORMAL); Total Cells Counted 100
[2024-10-06] MEDS ORDERED: Klor Con ONE (10:22)
[2024-10-06] MEDS ORDERED: Magnesium 1 Gm / 100 Ml D5W*** 100 ML IV ONE ×2 (10:22→11:07)
[2024-10-06] MEDS: Magnesium 1 Gm / 100 Ml D5W*** 100 ML IV SCH (10:24)
[2024-10-06] MEDS: Klor Con PO ONE (10:24)
[2024-10-06 12:38] LABS: Appearance Turbid (Clear); Bacteria Many /HPF (None Seen); Bilirubin Negative (Negative); Blood Large (Negative); Glucose, Urine Negative (Negative); Hyaline Casts NONE SEEN /LPF (0-2); Ketones 40 (Negative); Leukocyte Esterase Large (Negative); Nitrite Positive (Negative); Ph 6.5 (4.6-8.0); Protein,Urine Dip 30 (Negative); WBC >100 /HPF (0-5)
[2024-10-06 12:41] LABS: Epithelial Cells Rare /HPF (None Seen)
[2024-10-06] MEDS ORDERED: Levofloxacin 500MG/100ML D5W 500 MG/100 ML BAG IV ONE (12:50)
[2024-10-06] MEDS: Levofloxacin 500MG/100ML D5W 500 MG/100 ML BAG IV STA (12:51)
[2024-10-06 13:06] VITALS: O2SAT 98
[2024-10-06 13:53] VITALS: BP 108/66; PULSE 93
== END 2024-10-06 14:01 | disposition home or self-care (01) ==
LOC: ED 08:39
DX: D50.9 Iron deficiency anemia, unspecified (principal); E87.1 Hypo-osmolality and hyponatremia; E87.6 Hypokalemia; R50.9 Fever, unspecified; R11.2 Nausea with vomiting, unspecified; Z79.899 Other long term (current) drug therapy
CPT/HCPCS: 36415; 80053; 81001; 85025; 87077; 87086; 87186; 96361; 96365; 96366; 96367; 96374; 96375; 99285; J1956; J2405; J3475; A9270-GY